=== PATIENT | female | born 1970 | race Caucasian/White ===

== ENCOUNTER → 2016-12-19 | Outpatient (CLI) | payer BC ==
--- OUTSIDE RECORDS SUMMARY | 2017-03-05 13:21 | XMSREPORT | Summary of Care ---
:1970 Author Organization [facility] Address [address] [facility], [place] [place] [phone] Phone Care Team Providers Name Role Phone Ryan Bolanos Unavailable Unavailable Cait Bui Unavailable Unavailable Pilar Victoria Unavailable Unavailable Ryan Bolanos Unavailable Unavailable , Unavailable Unavailable Reason For Referral Gastro Reason for Visit Health Issues Reviewed:AnxietyDepression Functional Status Name Dates Details Functional status health issues are not documented Status: Name Dates Details Cognitive status health issues are not documented Status: Problems Name Dates Details Abdominal pain, chronic, generalized(789.07, R10.84) Status:Active Allergic rhinitis(477.9, J30.9) Status:Active Aneurysm, cerebral(437.3, I67.1) Status:Active Anxiety(300.00, F41.9) Status:Active Asthma(493.90, J45.909) Status:Active Bronchitis(490, J40) Status:Active Mar infection(112.9, B37.9) Status:Active Chronic headaches(784.0, R51) Status:Active Chronic use of opiate drugs therapeutic purposes(V58.69, Z79.891) Status: Active Depression(311, F32.9) Status:Active Elevated BUN(790.6, R79.9) Status:Active Frequent urination(788.41, R35.0) Status:Active Gastroparesis(536.3, K31.84) Status:Active H/O herpes genitalis(V12.09, Z86.19) Status:Active Hypothyroidism(244.9, E03.9) Status:Active Insomnia(780.52, G47.00) Status:Active Left flank pain(789.09, R10.9) Status:Active Migraine(346.90, G43.909) Status:Active Preoperative clearance(V72.84, Z01.818) Status:Active Recurrent nephrolithiasis(592.0, N20.0) Status:Active Recurrent sinusitis(473.9, J32.9) Status:Active Uncontrolled pain(780.96, R52) Status:Active Urine WBC increased(791.7, R82.99) Status:Active UTI symptoms(788.99, R39.9) Status:Active Medications Name Dates Details Advair Diskus 250-50 MCG/DOSE Inhalation Aerosol Powder Breath Activated INHALE 1 PUFF TWO TIMES A DAY Quantity:60 Refills:10 ClairD.O.Ryan [id number] Active ClonazePAM 1 MG Oral Tablet Take 1/2 tab jean-claude;u as needed. Quantity:15 Refills:1 [id number] Active Compro 25 MG Rectal Suppository UNWRAP AND INSERT 1 SUPPOSITORY RECTALLY THREE TIMES A DAY NEEDED FOR NAUSEA AND VOMITING Quantity:36 ClairD.Tarik.Ryan [id number] Active Diclofenac Sodium 50 MG Oral Tablet Delayed Release TAKE 1 TABLET BY MOUTH EVER Y 8 HOURS WITH FOOD NEED ED FOR PAIN Quantity:15 Cait Walsh [id number] Active FLUoxetine HCl - 40 MG Oral Capsule TAKE 1 CAPSULE Daily Quantity:30 Refills:3 Pilar Victoria [id number] Active HYDROmorphone HCl - 4 MG Oral Tablet TAKE 1 TABLET EVERY 6 HOURS NEEDED. Quantity:120 CiciDRyan Schulz Levothyroxine Sodium 100 MCG Oral Tablet TAKE 1 TABLET DAILY DIRECTED. Quantity:90 Refills:3 ClairDRyan Schulz [id number] Active Omeprazole 20 MG Oral Capsule Delayed Release TAKE 1 CAPSULE DAILY. Quantity:30 [id number] Active Ondansetron 8 MG Oral Tablet Disintegrating TAKE 1 TABLET Every 8 hours PRN Nausea and Vomiting Quantity:1 Refills:5 CiciDRyan Schulz [id number] Active 30 Tablet Dispersible Bottle SUMAtriptan Succinate 100 MG Oral Tablet TAKE ONE TABLET BY MOUTH AT ONSET OF MIGRAINE HEADACHE - DECEMBER REPEAT IN 2 HOURS IF NEEDED Quantity:9 Refills:11 Lis.Ryan Ledbetter [id number]-[id number] Active Trimethobenzamide HCl 300 MG Oral Capsule TAKE ONE CAPSULE BY MOUTH 2 TO 3 TIMES DAILY Quantity:90 Refills:3 ClairD.O.Ryan [id number]-[id number] Active Wellbutrin XL 150 MG Oral Tablet Extended Release 24 Hour (BuPROPion HCl ER (XL) ) TAKE 1 TABLET DAILY. Quantity:30 Refills:2 [id number] Active Zolpidem Tartrate 10 MG Oral Tablet TAKE ONE TABLET BY MOUTH AT BEDTIME NEEDED FOR SLEEP Quantity:30 Refills:5 ClairD.O.Ryan [id number]-Slu-6513 Active Zyrtec TABS Active Allergies and Adverse Reactions Name Dates Details chlorproMAZINE(Allergy) Status:Active Doxycycline Hyclate CAPS(Allergy) Status:Active iodine(Allergy) Status:Active Phenergan TABS(Allergy) Status:Active Tylox(Allergy) Status:Active ZyPREXA TABS(Allergy) Status:Active Procedures Procedure Dates Details History of Cholecystectomy History of Corneal LASIK History of Exploratory Laparoscopy History of Gallbladder Surgery History of Intracranial Aneurysm Repair Endovascular With [place] Coil History of Renal Lithotripsy History of Tubal Ligation Procedures not documented Immunization Name Dates Details No Known Immunizations Social History Name Dates Details - Status: Name Dates Details Former smoker Former smoker Vital Signs Date Test Result Details 13:28 Temperature 97.5f Status: Heart Rate 84/min Status: Physical Findings 21 Status:Comments:Respiration Height 69in Status: Weight 154.375lb Status: Body Mass Index Calculated 22.8kg/m2 Status: Body Surface Area Calculated 1.85m2 Status: BP Systolic 94mm[Hg] Status: BP Diastolic 82mm[Hg] Status: 19-Dec-2016 14:03 Physical Findings 96 Status:Comments:O2 Saturation 04-Oct-2014 14:16 Physical Findings 0 Status:Comments:Pain Scale Results Date Description Value Details Results not documented Plan of Care Name Dates Details Planned Observations Planned Goals not documented Planned Encounters 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 I'm also going to check on a dietary consult for a diet that would be good for gastroparesis. I 'll see her back in 3 weeks. Instructions Name Dates Details Instructions not documented Encounters Appointment; Cait Bui WHCNP [id number] Encounter Diagnosis:Problem not documented 13:45 Appointment; Cait Bui WHCNP Encounter Diagnosis:Problem not documented 15:00
== END | disposition home or self-care (01) ==
LOC: MW.CHIM 14:35
PROVIDERS: ATTEND Internal Medicine
DX: Z00.00 Encounter for general adult medical examination without abnormal findings (principal); E03.9 Hypothyroidism, unspecified
CPT/HCPCS: 36415; 80053; 80061; 84443; 85025

== ENCOUNTER 2017-07-27 00:58 | Emergency (ER) | payer BC ==
[2017-07-27] MEDS ORDERED: Ondansetron 4 MG/2 ML SDV IVPUSH ONE (01:16)
[2017-07-27] MEDS ORDERED: Sodium Chloride 0.9% 1,000 ML IV ONE (01:16)
--- NOTE | 2017-07-27 01:17 | EDM.PDOC ---
ED HPI GENERAL MEDICAL PROBLEM - General Chief Complaint: Abdominal Pain Stated Complaint: VOMITING/GASTRIC PROBLEM Time Seen by Provider: 07/27/17 01:17 Source of Information: Reports: Patient - History of Present Illness INITIAL COMMENTS - FREE TEXT/NARRATIVE: HISTORY AND PHYSICAL: History of present illness: [ Patient presents with abdominal pain she rates 10 out of 10, she has a history of ongoing gastroparesis and chronic abdominal pain secondarily. She is been on methadone previously and was switched to Dilaudid and she is on a medication from [place] to increase GI motility. She is cared for through [facility] in [place] and primary care with Dr. Polk for pain control. She has not been seen in the ER for pain control since [address] Almanza's detailed note that time. Her history is essentially unchanged from that time She initially presented with nausea and vomiting she has no fever chills sweats no chest pain shortness breath headache dizziness palpitation no urinary symptoms ] Review of systems: As per history of present illness and below otherwise all systems reviewed and negative. Past medical history: As per history of present illness and as reviewed below otherwise noncontributory. Surgical history: As per history of present illness and as reviewed below otherwise noncontributory. Social history: No reported history of drug or alcohol abuse. Family history: As per history of present illness and as reviewed below otherwise noncontributory. Physical exam: HEENT: Atraumatic, normocephalic, pupils reactive, negative for conjunctival pallor or scleral icterus, mucous membranes moist, throat clear, neck supple, nontender, trachea midline. Lungs: Clear to auscultation, breath sounds equal bilaterally, chest nontender. Heart: S1S2, regular, negative for clicks, rubs, or JVD. Abdomen: Soft, nondistended, diffusely tender no guarding or rebound. Negative for masses or hepatosplenomegaly. Negative for costovertebral tenderness. Pelvis: Stable nontender. Genitourinary: Deferred. Rectal: Deferred. Extremities: Atraumatic, negative for cords or calf pain. Neurovascular unremarkable. Neuro: Awake, alert, oriented. Cranial nerves II through XII unremarkable. Cerebellum unremarkable. Motor and sensory unremarkable throughout. Exam nonfocal. Diagnostics: []Lab as below CT abdomen pelvis no contrast as patient has iodine allergy Therapeutics: []1 L normal saline bolus Zofran 8 mg IV Dilaudid 2 mg IV Dilaudid 2 mg 4 times a day 10 no refill Zofran 8 mg ODT every 8 when necessary #30 no refill Patient refused admission for pain control/observation, intraluminal of currently out of her current medication provided Dilaudid 2 mg by mouth 4 times a day when necessary for pain 10 tablets no refills she has an appointment to follow with Dr. Polk on Friday per patient Impression: []Abdominal pain Nausea vomiting resolved History of gastroparesis followed by [place] Chronic pain-currently controlled Definitive disposition and diagnosis as appropriate pending reevaluation and review of above. Bilateral Upper Abdomen Pain Score (Numeric/FACES): 8 - Related Data Allergies Allergy/AdvReac Type Severity Reaction Status Date / Time acetaminophen [From Tylox] Allergy Cannot Verified 07/27/17 01:03 Remember chlorpromazine Allergy Seizure Verified 07/27/17 01:03 doxycycline Allergy Cannot Verified 07/27/17 01:03 Remember iopamidol [From Isovue-128] Allergy Burning Verified 07/27/17 01:03 morphine Allergy Rash Verified 07/27/17 01:03 olanzapine [From Zyprexa] Allergy Hyperactivi Verified 07/27/17 01:03 ty oxycodone HCl [From Tylox] Allergy Cannot Verified 07/27/17 01:03 Remember promethazine HCl Allergy Hallucinati Verified 07/27/17 01:03 [From Phenergan] ons Home Meds: Home Meds Cetirizine HCl [Zyrtec] 1 tab PO DAILY 12/09/14 [History] Fluticasone/Salmeterol [Advair 250-50] 1 puff INH BID 12/09/14 [History] Omeprazole 1 tab PO DAILY 12/09/14 [History] Zolpidem [Ambien] 1 tab PO BEDTIME 12/09/14 [History] Ascorbic Acid [Vitamin C] 1 tab PO DAILY 08/02/15 [History] Cholecalciferol (Vitamin D3) [Vitamin D3] 5,000 unit PO DAILY 08/02/15 [History] Cyanocobalamin (Vitamin B-12) [Vitamin B-12] 1 tab PO DAILY 08/02/15 [History] Levothyroxine [Synthroid] 100 mcg PO ACBREAKFAST 08/02/15 [History] MV,Ca,Min/FA/Herbal No.157 [Estroven Max Strength Caplet] 400 mcg PO DAILY 08/02 [History] SUMAtriptan 100 mg PO DAILY PRN 08/02/15 [History] Trimethobenzamide [Tigan] 300 mg PO TID PRN 08/02/15 [History] Vitamin A 1 cap PO DAILY 08/02/15 [History] Vitamin E 400 unit PO BID 08/02/15 [History] valACYclovir [Valtrex] 500 mg PO BID 08/02/15 [History] Buprenorphine [Butrans] 1 each TD Q7D #1 patch.tdwk 08/04/15 [Rx] Ondansetron [Zofran ODT] 4 mg PO Q4H PRN #30 tab.dis 08/04/15 [Rx] Fluticasone/Salmeterol [Advair Hfa 230-21 Mcg Inhaler] 1 inh INH TID 09/24/15 [ History] HYDROmorphone [Dilaudid] 4 mg PO ASDIRECTED 09/24/15 [History] Past Medical History HEENT History: Reports: Impaired Vision Cardiovascular History: Reports: None Respiratory History: Reports: Asthma, COPD Gastrointestinal History: Reports: None Other Gastrointestinal History: gastroparesis Genitourinary History: Reports: None DROP TESTER History: Reports: None Musculoskeletal History: Reports: None Neurological History: Reports: Cerebral Aneurysms Psychiatric History: Reports: None Endocrine/Metabolic History: Reports: None Hematologic History: Reports: None Immunologic History: Reports: None Oncologic (Cancer) History: Reports: None Dermatologic History: Reports: None - Infectious Disease History Infectious Disease History: Reports: Chicken Pox - Past Surgical History Head Surgeries/Procedures: Reports: None Cardiovascular Surgical History: Reports: None Respiratory Surgical History: Reports: None GI Surgical History: Reports: Cholecystectomy Female Surgical History: Reports: Tubal Ligation Endocrine Surgical History: Reports: None Musculoskeletal Surgical History: Reports: None Oncologic Surgical History: Reports: None Dermatological Surgical History: Reports: None Social & Family History - Family History Family Medical History: Noncontributory - Tobacco Use Smoking Status *Q: Never Smoker Years of Tobacco use: 15 Second Hand Smoke Exposure: No - Caffeine Use Caffeine Use: Reports: None - Alcohol Use Days Per Week of Alcohol Use: 0 - Recreational Drug Use Recreational Drug Use: No ED ROS GENERAL - Review of Systems Review Of Systems: ROS reveals no pertinent complaints other than HPI. ED EXAM, GENERAL - Physical Exam Exam: See Below Course - Vital Signs Last Recorded V/S: Last Vital Signs Temp 95.5 F 07/27/17 01:05 Pulse 107 H 07/27/17 01:05 Resp 18 07/27/17 01:05 BP 145/79 H 07/27/17 01:05 Pulse Ox 95 07/27/17 01:05 - Orders/Labs/Meds Orders: Active Orders 24 hr Category Date Time Status Abdomen Pelvis wo Cont [CT] Stat Exams 07/27/17 01:49 Taken Labs: Laboratory Tests 07/27/17 07/27/17 07/27/17 Range/Units 01: 01:26 01:59 WBC 13.40 H (4.0-11.0) K/uL RBC 5.21 (4.30-5.90) M/uL Hgb 16.0 (12.0-16.0) g/dL Hct 47.6 H (36.0-46.0) % MCV 91.4 (80.0-98.0) fL MCH 30.7 (27.0-32.0) pg MCHC 33.6 (31.0-37.0) g/dL RDW Std Deviation 46.6 (28.0-62.0) fl RDW Coeff of Erlin 14 (11.0-15.0) % Plt Count 401 H (150-400) K/uL MPV 8.10 (7.40-12.00) fL Neut % (Auto) 85.4 H (48.0-80.0) % Lymph % (Auto) 8.8 L (16.0-40.0) % [place] % (Auto) 4.2 (0.0-15.0) % Eos % (Auto) 1.3 (0.0-7.0) % Baso % (Auto) 0.3 (0.0-1.5) % Neut # (Auto) 11.5 H (1.4-5.7) K/uL Lymph # (Auto) 1.2 (0.6-2.4) K/uL [place] # (Auto) 0.6 (0.0-0.8) K/uL Eos # (Auto) 0.2 (0.0-0.7) K/uL Baso # (Auto) 0.0 (0.0-0.1) K/uL Sodium 141 (136-146) mmol/L Potassium 4.4 (3.5-5.1) mmol/L Chloride 107 (98-110) mmol/L Carbon Dioxide 21 (21-31) mmol/L BUN 18 (6.0-23.0) mg/dL Creatinine 1.2 (0.6-1.5) mg/dL Est Cr Clr Drug Dosing 60.57 mL/min Estimated GFR (MDRD) 48.2 ml/min Glucose 178 H (60-110) mg/dL Calcium 9.9 (8.8-10.8) mg/dL Total Bilirubin 0.4 (0.1-1.5) mg/dL AST 17 (5-40) IU/L ALT 17 (8-54) IU/L Alkaline Phosphatase 93 (40-150) Total Protein 8.1 H (6.0-8.0) g/dL Albumin 4.4 (3.5-5.0) g/dL Globulin 3.7 H (2.0-3.5) g/dL Albumin/Globulin Ratio 1.2 L (1.3-2.8) Urine Color YELLOW Urine Appearance SLT CLOUDY Urine pH 6.0 (5.0-8.0) Ur Specific [employer] >= 1.030 (1.001-1.035) Urine Protein NEGATIVE (NEGATIVE) mg/dL Urine Glucose (UA) NEGATIVE (NEGATIVE) mg/dL Urine Ketones 40 H (NEGATIVE) mg/dL Urine Occult Blood NEGATIVE (NEGATIVE) Urine Nitrite NEGATIVE (NEGATIVE) Urine Bilirubin NEGATIVE (NEGATIVE) Urine Urobilinogen 0.2 (<2.0) EU/dL Ur Leukocyte Esterase SMALL (NEGATIVE) Urine RBC 0-3 (0-2/HPF) Urine WBC 7-10 (0-5/HPF) Ur Epithelial Cells MODERATE (NONE-FEW) Urine Bacteria 1+ H (NEGATIVE) Urine Mucus LIGHT (NONE-MOD) Meds: Medications Discontinued Medications Generic Name Dose Route Start Last Admin Trade Name Freq PRN Reason Stop Dose Admin Hydromorphone HCl 2 mg 07/27/17 01:45 07/27/17 01:55 Dilaudid IVPUSH 07/27/17 01:46 2 mg ONETIME ONE Administration Sodium Chloride 1,000 mls @ 999 mls/hr 07/27/17 01:16 07/27/17 01:27 Normal Saline IV 07/27/17 02:16 999 mls/hr STAT ONE Administration Ondansetron HCl 8 mg 07/27/17 01:16 07/27/17 01:23 Zofran IVPUSH 07/27/17 01:17 8 mg ONETIME ONE Administration Departure - Departure Time of Disposition: 03:33 Disposition: Home, Self-Care 01 Condition: Fair Clinical Impression: Abdominal pain - Discharge Information Referrals: Ryan Bolanos DO [Primary Care Provider] - Forms: ED Department Discharge Additional Instructions: Medication as prescribed Return if symptoms persist or worsen Follow-up with Dr. bolanos Friday as discussed The following information is given to patients seen in the emergency department who are being discharged to home. This information is to outline your options for follow-up care. We provide all patients seen in our emergency department with a follow-up referral. The need for follow-up, as well as the timing and circumstances, are variable depending upon the specifics of your emergency department visit. If you don't have a primary care physician on staff, we will provide you with a referral. We always advise you to contact your personal physician following an emergency department visit to inform them of the circumstance of the visit and for follow-up with them and/or the need for any referrals to a consulting specialist. The emergency department will also refer you to a specialist when appropriate. This referral assures that you have the opportunity for follow-up care with a specialist. All of these measure are taken in an effort to provide you with optimal care, which includes your follow-up. Under all circumstances we always encourage you to contact your private physician who remains a resource for coordinating your care. When calling for follow-up care, please make the office aware that this follow-up is from your recent emergency room visit. If for any reason you are refused follow-up, please contact the [facility] emergency department at and asked to speak to the emergency department charge nurse. - My Orders Last 24 Hours: My Active Orders 07/27/17 01:49 Abdomen Pelvis wo Cont [CT] Stat - Assessment/Plan Last 24 Hours: My Active Orders 07/27/17 01:49 Abdomen Pelvis wo Cont [CT] Stat
[2017-07-27] MEDS ORDERED: HYDROmorphone 1 MG/ML Syringe IVPUSH ONE (01:45)
[2017-07-27 03:51] VITALS: BP 105/67
--- NOTE | 2017-07-27 09:59 | CT ---
EXAM DATE: 07/27/17 PATIENT'S AGE: 47 Patient: ABEL BLUM Facility: [place], [place] Site . Site : 1970 Study: CT Abdomen/Pelvis [id number]/26/2017 2:36:01 AM Ordering Physician: Nate Shirley Final Report: INDICATION: Generalized abdominal pain, vomiting, history of gastroparesis TECHNIQUE: CT abdomen and pelvis without contrast. COMPARISON: July 11, 2016 FINDINGS: Lower chest: Unremarkable. Liver: Unremarkable. Spleen: Unremarkable. Pancreas: Unremarkable. Gallbladder and bile ducts: Status post cholecystectomy. Adrenal glands: Unremarkable. Kidneys: Punctate nonobstructive left renal stone. GI tract: Large amount of stool throughout the colon. Multiple oval densities throughout the colon, presumably pills. Vascular structures: Unremarkable. Lymph nodes: Unremarkable. Miscellaneous: Unremarkable. No free air or significant free fluid. Pelvic Organs: Unremarkable. Bones: Unremarkable for age. IMPRESSION: Large amount of stool throughout the colon. Multiple oval densities throughout the colon presumably represent pills. Correlate with clinical history. No acute intra-abdominal inflammatory process identified. Nonobstructive left nephrolithiasis. Status post cholecystectomy. Please note that all CT scans at this facility use dose modulation, iterative reconstruction, and/or weight-based dosing when appropriate to reduce radiation dose to as low as reasonably achievable. Dictated by Letty Esteban MD @ Jul 27 2017 3:02AM (Electronic Signature) Report Signed by Proxy. [facility]
== END 2017-07-27 03:55 | disposition home or self-care (01) ==
LOC: MW.ED 00:58
DX: R10.11 Right upper quadrant pain (principal); R10.12 Left upper quadrant pain; R11.2 Nausea with vomiting, unspecified; Z88.5 Allergy status to narcotic agent; Z88.1 Allergy status to other antibiotic agents; Z88.8 Allergy status to other drugs, medicaments and biological substances; Z79.899 Other long term (current) drug therapy
CPT/HCPCS: 74176; 80053; 81001; 85025; 96361; 96374; 96375; 99284; J1170; J2405; J7040

== ENCOUNTER 2017-07-27 10:06 | Observation (INO) | payer BC ==
--- NOTE | 2017-07-27 10:19 | EDM.PDOC ---
ED HPI GENERAL MEDICAL PROBLEM - General Chief Complaint: Abdominal Pain Stated Complaint: VOMITING Time Seen by Provider: 07/27/17 10:18 Source of Information: Reports: Patient, Family History Limitations: Reports: No Limitations - History of Present Illness INITIAL COMMENTS - FREE TEXT/NARRATIVE: HISTORY AND PHYSICAL: []47-year-old female presenting with abdominal pain history of gastroparesis History of Present Illness: []Patient was in 3:00 this morning and seen by Dr. Sullivan for same had been offered admission inpatient he declined at that time She presents with recurrent abdominal pain She was seen by [facility] for chronic pain Review of Systems: As per history of present illness and below otherwise all systems reviewed and negative. Past medical history: As per history of present illness and as reviewed below otherwise noncontributory. Surgical history: As per history of present illness and as reviewed below otherwise noncontributory. Social history: No reported history of drug or alcohol abuse. Family history: As per history of present illness and as reviewed below otherwise noncontributory. Physical exam: Alert and oriented female looking quite distressed significant pain noted. Answering questions in full sentences without any shortness of breath HEENT: Atraumatic, normocehpalic, pupils reactive, negative for conjunctival pallor or scleral icterus, mucous membranes moist, throat clear, neck supple, nontender, trachea midline. Lungs: Clear to auscultation, breath sounds equal bilaterally, chest non tender. Heart: S1S2, regular, negative for clicks, rubs, or JVD. Abdomen: Soft, mild distended, tender. Negative for masses or hepatossplenmegaly. Negative for costovertebral tenderness. Pelvis: Stable nontender. Genitourinary: Deferred. Rectal: Deferred Extremities: Atraumatic, negative for cords or calf pain. Neurovascular unremarkable. Neuro: Awake, alert, oriented. Cranial nerves II through XII unremarkable. Cerebellum unremarkable. Motor and sensory unremarkable throughout. Exam nonfocal. Discussed this case briefly with Dr. Zarco who has accepted for Observation on Med - Surg Diagnostics: [] Therapeutics: [IV fluids Dilaudid Zofran ] Impression: [Gastroparesis] Plan: []Refer for observation Definitive disposition and diagnosis as appropriate pending reevaluation and review of above. - Related Data Allergies Allergy/AdvReac Type Severity Reaction Status Date / Time acetaminophen [From Tylox] Allergy Cannot Verified 07/27/17 10:14 Remember chlorpromazine Allergy Seizure Verified 07/27/17 10:14 doxycycline Allergy Cannot Verified 07/27/17 10:14 Remember iopamidol [From Isovue-128] Allergy Burning Verified 07/27/17 10:14 morphine Allergy Rash Verified 07/27/17 10:14 olanzapine [From Zyprexa] Allergy Hyperactivi Verified 07/27/17 10:14 ty oxycodone HCl [From Tylox] Allergy Cannot Verified 07/27/17 10:14 Remember promethazine HCl Allergy Hallucinati Verified 07/27/17 10:14 [From Phenergan] ons Home Meds: Home Meds Cetirizine HCl [Zyrtec] 1 tab PO DAILY 12/09/14 [History] Fluticasone/Salmeterol [Advair 250-50] 1 puff INH BID 12/09/14 [History] Omeprazole 1 tab PO DAILY 12/09/14 [History] Zolpidem [Ambien] 1 tab PO BEDTIME 12/09/14 [History] Ascorbic Acid [Vitamin C] 1 tab PO DAILY 08/02/15 [History] Cholecalciferol (Vitamin D3) [Vitamin D3] 5,000 unit PO DAILY 08/02/15 [History] Cyanocobalamin (Vitamin B-12) [Vitamin B-12] 1 tab PO DAILY 08/02/15 [History] Levothyroxine [Synthroid] 100 mcg PO ACBREAKFAST 08/02/15 [History] MV,Ca,Min/FA/Herbal No.157 [Estroven Max Strength Caplet] 400 mcg PO DAILY 08/02 [History] SUMAtriptan 100 mg PO DAILY PRN 08/02/15 [History] Trimethobenzamide [Tigan] 300 mg PO TID PRN 08/02/15 [History] Vitamin A 1 cap PO DAILY 08/02/15 [History] Vitamin E 400 unit PO BID 08/02/15 [History] valACYclovir [Valtrex] 500 mg PO BID 08/02/15 [History] Buprenorphine [Butrans] 1 each TD Q7D #1 patch.tdwk 08/04/15 [Rx] Ondansetron [Zofran ODT] 4 mg PO Q4H PRN #30 tab.dis 08/04/15 [Rx] Fluticasone/Salmeterol [Advair Hfa 230-21 Mcg Inhaler] 1 inh INH TID 09/24/15 [ History] HYDROmorphone [Dilaudid] 4 mg PO ASDIRECTED 09/24/15 [History] Past Medical History HEENT History: Reports: Impaired Vision Cardiovascular History: Reports: None Respiratory History: Reports: Asthma, COPD Gastrointestinal History: Reports: None Other Gastrointestinal History: gastroparesis Genitourinary History: Reports: None HUSBANDRY PERSON History: Reports: None Musculoskeletal History: Reports: None Neurological History: Reports: Cerebral Aneurysms Psychiatric History: Reports: None Endocrine/Metabolic History: Reports: None Hematologic History: Reports: None Immunologic History: Reports: None Oncologic (Cancer) History: Reports: None Dermatologic History: Reports: None - Infectious Disease History Infectious Disease History: Reports: Chicken Pox - Past Surgical History Head Surgeries/Procedures: Reports: None Cardiovascular Surgical History: Reports: None Respiratory Surgical History: Reports: None GI Surgical History: Reports: Cholecystectomy Female Surgical History: Reports: Tubal Ligation Endocrine Surgical History: Reports: None Musculoskeletal Surgical History: Reports: None Oncologic Surgical History: Reports: None Dermatological Surgical History: Reports: None Social & Family History - Family History Family Medical History: Noncontributory - Tobacco Use Smoking Status *Q: Never Smoker Years of Tobacco use: 15 Second Hand Smoke Exposure: No - Caffeine Use Caffeine Use: Reports: None - Alcohol Use Days Per Week of Alcohol Use: 0 - Recreational Drug Use Recreational Drug Use: No ED ROS GENERAL - Review of Systems Review Of Systems: ROS reveals no pertinent complaints other than HPI. ED EXAM, GI/ABD - Physical Exam Exam: See Below Course - Orders/Labs/Meds Orders: Active Orders 24 hr Category Date Time Status Patient Status [ADT] Stat ADT 07/27/17 10:42 Ordered COMPREHENSIVE METABOLIC PN,CMP [CHEM] Stat Lab 07/27/17 10:22 Ordered LACTIC ACID,WHOLE BLOOD [BG] Stat Lab 07/27/17 10:22 Ordered Sodium Chloride 0.9% [Normal Saline] 1,000 ml Med 07/27/17 10:22 Active IV STAT Sodium Chloride 0.9% [Saline Flush] Med 07/27/17 10:22 Active 10 ml FLUSH ASDIRECTED PRN Sodium Chloride 0.9% [Saline Flush] Med 07/27/17 10:22 Active 2.5 ml FLUSH ASDIRECTED PRN Saline Lock Insert [OM.PC] Stat Oth 07/27/17 10:22 Ordered Medication Orders Sodium Chloride (Normal Saline) 1,000 mls @ 999 mls/hr IV STAT ONE Stop: 07/27/17 11:22 Last Admin: 07/27/17 10:41 Dose: 999 mls/hr Sodium Chloride (Saline Flush) 10 ml FLUSH ASDIRECTED PRN PRN Reason: Keep Vein Open Sodium Chloride (Saline Flush) 2.5 ml FLUSH ASDIRECTED PRN PRN Reason: Keep Vein Open Meds: Medications Generic Name Dose Route Start Last Admin Trade Name Freq PRN Reason Stop Dose Admin Sodium Chloride 1,000 mls @ 999 mls/hr 07/27/17 10:22 07/27/17 10:41 Normal Saline IV 07/27/17 11:22 999 mls/hr STAT ONE Administration Sodium Chloride 10 ml 07/27/17 10:22 Saline Flush FLUSH ASDIRECTED PRN Keep Vein Open Sodium Chloride 2.5 ml 07/27/17 10:22 Saline Flush FLUSH ASDIRECTED PRN Keep Vein Open Discontinued Medications Generic Name Dose Route Start Last Admin Trade Name Freq PRN Reason Stop Dose Admin Hydromorphone HCl 2 mg 07/27/17 10:22 07/27/17 10:41 Dilaudid IVPUSH 07/27/17 10:23 2 mg ONETIME ONE Administration Ondansetron HCl 4 mg 07/27/17 10:22 07/27/17 10:41 Zofran Odt PO 07/27/17 10:23 4 mg ONETIME ONE Administration Departure - Departure Time of Disposition: 10:44 Disposition: Refer to Observation Condition: Good Clinical Impression: Gastroparesis, Abdominal pain - Discharge Information Forms: ED Department Discharge - My Orders Last 24 Hours: My Active Orders 07/27/17 10:22 COMPREHENSIVE METABOLIC PN,CMP [CHEM] Stat LACTIC ACID,WHOLE BLOOD [BG] Stat Sodium Chloride 0.9% [Normal Saline] 1,000 ml IV STAT Sodium Chloride 0.9% [Saline Flush] 10 ml FLUSH ASDIRECTED PRN Sodium Chloride 0.9% [Saline Flush] 2.5 ml FLUSH ASDIRECTED PRN Saline Lock Insert [OM.PC] Stat 07/27/17 10:42 Patient Status [ADT] Stat - Assessment/Plan Last 24 Hours: My Active Orders 07/27/17 10:22 COMPREHENSIVE METABOLIC PN,CMP [CHEM] Stat LACTIC ACID,WHOLE BLOOD [BG] Stat Sodium Chloride 0.9% [Normal Saline] 1,000 ml IV STAT Sodium Chloride 0.9% [Saline Flush] 10 ml FLUSH ASDIRECTED PRN Sodium Chloride 0.9% [Saline Flush] 2.5 ml FLUSH ASDIRECTED PRN Saline Lock Insert [OM.PC] Stat 07/27/17 10:42 Patient Status [ADT] Stat
[2017-07-27] MEDS ORDERED: Sodium Chloride 0.9% 10 ML Syringe FLUSH PRN ×2 (10:22→13:25)
[2017-07-27] MEDS ORDERED: Ondansetron 4 MG Tab.DIS PO ONE (10:22)
[2017-07-27] MEDS ORDERED: HYDROmorphone 2 MG/ML Syringe IVPUSH ONE (10:22)
[2017-07-27] MEDS ORDERED: Sodium Chloride 0.9% 1,000 ML IV ONE (10:22)
[2017-07-27] MEDS ORDERED: Sodium Chloride 0.9% 2.5 ML Syringe FLUSH PRN ×2 (10:22→13:25)
[2017-07-27] MEDS ORDERED: diphenhydrAMINE 50 MG/ML SDV IVPUSH ONE (10:58)
[2017-07-27 11:15] LABS: CHLORIDE,CL 108 mmol/L (98-110); SODIUM,NA 139 mmol/L (136-146)
--- NOTE | 2017-07-27 12:04 | PCM.HP ---
H&P History of Present Illness - General Date of Service: 07/27/17 Source of Information: Patient History Limitations: Reports: No Limitations - History of Present Illness Initial Comments - Free Text/Narative: Patient 47 y old female with PMx of gastroparesis diagnosed few years ago, presented to hospital today twice due to severe abdominal pain associated with intractable nausea and vomiting. As per patient she run out of her pain medication and when she gets severe abdominal pain she starts vomiting . Her vomiting is being triggered by pain. She was seen in ER and received iv fluids and Dilaudid 2 mg iv and was discharged home , but as soon as her medication wore off she start vomiting again. Onset of Symptoms: Reports: Today, Sudden Duration of Symptoms: Reports: Hour(s): Location: Reports: Abdomen abdomen Pain Score (Numeric/FACES): 4 - Related Data Allergies/Adverse Reactions: Allergies Allergy/AdvReac Type Severity Reaction Status Date / Time chlorpromazine Allergy Seizure Verified 07/27/17 10:14 doxycycline Allergy Cannot Verified 07/27/17 10:14 Remember iopamidol [From Isovue-128] Allergy Burning Verified 07/27/17 10:14 olanzapine [From Zyprexa] Allergy Hyperactivi Verified 07/27/17 10:14 ty promethazine HCl Allergy Hallucinati Verified 07/27/17 10:14 [From Phenergan] ons Home Medications: Home Meds Cetirizine HCl [Zyrtec] 1 tab PO DAILY 12/09/14 [History] Fluticasone/Salmeterol [Advair 250-50] 1 puff INH BID 12/09/14 [History] Omeprazole 1 tab PO DAILY 12/09/14 [History] Zolpidem [Ambien] 1 tab PO BEDTIME 12/09/14 [History] Cholecalciferol (Vitamin D3) [Vitamin D3] 5,000 unit PO DAILY 08/02/15 [History] Cyanocobalamin (Vitamin B-12) [Vitamin B-12] 1 tab PO DAILY 08/02/15 [History] Levothyroxine [Synthroid] 100 mcg PO ACBREAKFAST 08/02/15 [History] SUMAtriptan 100 mg PO DAILY PRN 08/02/15 [History] Trimethobenzamide [Tigan] 300 mg PO TID PRN 08/02/15 [History] Vitamin A 1 cap PO DAILY 08/02/15 [History] Vitamin E 400 unit PO DAILY 08/02/15 [History] valACYclovir [Valtrex] 500 mg PO BID PRN MDD Herpes 08/02/15 [History] Ondansetron [Zofran ODT] 4 mg PO Q4H PRN #30 tab.dis 08/04/15 [Rx] HYDROmorphone [Dilaudid] 4 mg PO ASDIRECTED 09/24/15 [History] Past Medical History - Past Health History Medical/Surgical History: Denies Medical/Surgical History HEENT History: Reports: Impaired Vision Cardiovascular History: Reports: None Respiratory History: Reports: Asthma, COPD Gastrointestinal History: Reports: None Other Gastrointestinal History: gastroparesis Genitourinary History: Reports: None [employer] History: Reports: None Musculoskeletal History: Reports: None Neurological History: Reports: Cerebral Aneurysms Psychiatric History: Reports: None Endocrine/Metabolic History: Reports: None Hematologic History: Reports: None Immunologic History: Reports: None Oncologic (Cancer) History: Reports: None Dermatologic History: Reports: None - Infectious Disease History Infectious Disease History: Reports: Chicken Pox - Past Surgical History Head Surgeries/Procedures: Reports: None Cardiovascular Surgical History: Reports: None Respiratory Surgical History: Reports: None GI Surgical History: Reports: Cholecystectomy Female Surgical History: Reports: Tubal Ligation Endocrine Surgical History: Reports: None Musculoskeletal Surgical History: Reports: None Oncologic Surgical History: Reports: None Dermatological Surgical History: Reports: None Social & Family History - Family History Family Medical History: Noncontributory - Tobacco Use Smoking Status *Q: Never Smoker Years of Tobacco use: 15 Second Hand Smoke Exposure: No - Caffeine Use Caffeine Use: Reports: None - Alcohol Use Days Per Week of Alcohol Use: 0 - Recreational Drug Use Recreational Drug Use: No H&P Review of Systems - Review of Systems: Review Of Systems: See Below General: Reports: No Symptoms HEENT: Reports: No Symptoms Pulmonary: Reports: No Symptoms Cardiovascular: Reports: No Symptoms Gastrointestinal: Reports: Abdominal Pain, Nausea, Vomiting Genitourinary: Reports: No Symptoms Musculoskeletal: Reports: No Symptoms Skin: Reports: No Symptoms Psychiatric: Reports: No Symptoms Neurological: Reports: No Symptoms Hematologic/Lymphatic: Reports: No Symptoms Immunologic: Reports: No Symptoms Exam - Exam Exam: See Below - Vital Signs Vital Signs: Last Vital Signs Temp 97.5 F 07/27/17 11:12 Pulse 97 07/27/17 11:12 Resp 16 07/27/17 11:12 BP 115/78 07/27/17 11:12 Pulse Ox 94 L 07/27/17 11:12 Weight: 154 lb 5.177 oz - Exam Quality Assessment: No: Supplemental Oxygen General: Alert, Oriented, Cooperative, Moderate Distress HEENT: Conjunctiva Clear, EACs Clear, EOMI, Hearing Intact Neck: Supple, Trachea Midline Lungs: Clear to Auscultation, Normal Respiratory Effort Cardiovascular: Regular Rate, Regular Rhythm, Normal S1, Normal S2 GI/Abdominal Exam: Normal Bowel Sounds, Soft, Non-Tender, No Organomegaly, No Distention, No Abnormal Bruit Back Exam: Normal Inspection Extremities: Normal Inspection Skin: Warm, Dry, Intact Neurological: Cranial Nerves Intact Neuro Extensive - Mental Status: Alert, Oriented x3 Neuro Extensive - Motor, Sensory, Reflexes: CN II-XII Intact Psychiatric: Alert, Normal Affect - Patient Data Result Diagrams: 07/27/17 10:38 *Q Meaningful Use (ADM) - VTE *Q VTE Criteria *Q: - Stroke *Q Stroke Criteria *Q: - AMI *Q AMI Criteria *Q: - Problem List (1) Brain aneurysm SNOMED Code(s): 379902067 ICD Code: I67.1 - CEREBRAL ANEURYSM, NONRUPTURED Status: Acute Current Visit: Yes Problem List Initiated/Reviewed/Updated: Yes Orders Last 24hrs: Medication Orders Sodium Chloride (Saline Flush) 10 ml FLUSH ASDIRECTED PRN PRN Reason: Keep Vein Open Sodium Chloride (Saline Flush) 2.5 ml FLUSH ASDIRECTED PRN PRN Reason: Keep Vein Open Assessment/Plan Comment:: A/p Gastroparesis: will admit patient to med surge, iv fluids, antinausea medication zofran iv 4 mg q 4 h prn , dilaudid 2 mg iv q 4 h . Patient says she cant tolerate reglan , erythromycin DVt prof - heparin sq anxiety - zalepton 10 mg po q hs
[2017-07-27] MEDS ORDERED: Dextrose 5%-0.45% NaCl 1,000 ML IV SCH (13:30)
[2017-07-27] MEDS ORDERED: Metoclopramide 10 MG/2 ML SDV IVPUSH PRN (13:50)
[2017-07-27] MEDS: Sodium Chloride 0.45% 1,000 ML IV SCH (14:48)
[2017-07-27] MEDS: HYDROmorphone 2 MG/ML Syringe IVPUSH PRN ×2 (14:48→21:21)
[2017-07-27] MEDS: Ondansetron 4 MG/2 ML SDV IVPUSH PRN ×2 (14:49→21:29)
[2017-07-27] MEDS: diphenhydrAMINE 50 MG/ML SDV IVPUSH PRN ×2 (16:23→21:57)
[2017-07-27] MEDS: Acetaminophen 500 MG Tab PO PRN (17:34)
[2017-07-27] MEDS: Fluticasone/Salmeterol 250-50 MCG Inhalation Powder 14/Diskus INH SCH (21:29)
[2017-07-28] MEDS: Sodium Chloride 0.45% 1,000 ML IV SCH ×2 (00:21→10:21)
[2017-07-28] MEDS: Acetaminophen 500 MG Tab PO PRN (01:31)
[2017-07-28] MEDS: HYDROmorphone 2 MG/ML Syringe IVPUSH PRN ×3 (03:27→11:49)
[2017-07-28] MEDS: diphenhydrAMINE 50 MG/ML SDV IVPUSH PRN (03:33)
[2017-07-28] MEDS: Ondansetron 4 MG/2 ML SDV IVPUSH PRN ×3 (03:33→11:49)
[2017-07-28 06:26] LABS: CHLORIDE,CL 109 mmol/L (98-110); SODIUM,NA 137 mmol/L (136-146)
[2017-07-28] MEDS ORDERED: Enoxaparin 40 MG/0.4 ML Syringe SUBCUT SCH (09:00)
[2017-07-28] MEDS ORDERED: Ondansetron 4 MG/2 ML SDV IVPUSH ONE (09:20)
[2017-07-28] MEDS: SUMAtriptan 50 MG Tab PO PRN ×2 (09:42→11:43)
[2017-07-28 09:43] VITALS: BP 109/73
[2017-07-28] MEDS: Fluticasone/Salmeterol 250-50 MCG Inhalation Powder 14/Diskus INH SCH (10:26)
[2017-07-28] MEDS ORDERED: Pantoprazole 40 MG Vial IVPUSH SCH (10:30)
[2017-07-28] MEDS ORDERED: ClonazePAM 0.5 MG Tab PO PRN (11:13)
[2017-07-28] MEDS ORDERED: Albuterol 8 GM Inhaler INH PRN (11:13)
[2017-07-28] MEDS ORDERED: TRIMETHOBENZAMIDE 300 MG PO PRN (11:13)
[2017-07-28] MEDS ORDERED: buPROPion 150 MG Tab.ER PO SCH (11:15)
[2017-07-28] MEDS ORDERED: Non-Formulary Medication 1 Each (Bupropion Hcl [Wellbutrin Xl] 300 MG) PO SCH (11:15)
[2017-07-28] MEDS ORDERED: Non-Formulary Medication 1 Each PO SCH (11:30)
--- NOTE | 2017-07-28 13:33 | PCM.DCSUM1 ---
Discharge Summary - Hospital Course Brief History: Patient 47 year old female with pmh of gastroparesis and depression presented to hospital twice in one day due to severe abdominal pain associated with intractable nausea and vomiting. As per patient she ran out of her pain medication and when she gets severe abdominal pain she starts vomiting . Her vomiting is being triggered by pain. She was seen in ER and received iv fluids and Dilaudid 2 mg iv and was discharged home , but as soon as her medication wore off she start vomiting again. - Discharge Data Discharge Date: 07/28/17 Discharge Disposition: Home, Self-Care 01 Condition: Good - Patient Instructions Diet: GI Soft/Low Residue/Low Fiber Activity: As Tolerated Notify Provider of: Fever, Increased Pain, Swelling and Redness, Drainage, Nausea and/or Vomiting - Discharge Plan Prescriptions/Med Rec: HYDROmorphone [Dilaudid] 4 mg PO Q6H PRN #10 tablet PRN Reason: Pain Home Medications: Home Meds Cetirizine HCl [Zyrtec] 10 mg PO DAILY 12/09/14 [History] Fluticasone/Salmeterol [Advair 250-50] 1 puff INH BID 12/09/14 [History] Omeprazole 1 tab PO DAILY 12/09/14 [History] Zolpidem [Ambien] 10 mg PO BEDTIME 12/09/14 [History] Cholecalciferol (Vitamin D3) [Vitamin D3] 5,000 unit PO DAILY 08/02/15 [History] Cyanocobalamin (Vitamin B-12) [Vitamin B-12] 1,000 mcg PO DAILY 08/02/15 [ History] Levothyroxine [Synthroid] 100 mcg PO ACBREAKFAST 08/02/15 [History] SUMAtriptan 100 mg PO .EVERY 2 HOURS PRN MDD 200 MG 08/02/15 [History] Trimethobenzamide [Tigan] 300 mg PO TID PRN 08/02/15 [History] Vitamin A 8,000 unit PO DAILY 08/02/15 [History] Vitamin E 400 unit PO DAILY 08/02/15 [History] valACYclovir [Valtrex] 500 mg PO BID PRN MDD Herpes 08/02/15 [History] Albuterol [Ventolin HFA] 2 inh IH Q6H PRN 07/28/17 [History] ClonazePAM [KlonoPIN] 0.5 mg PO BEDTIME PRN 07/28/17 [History] FLUoxetine HCl [Fluoxetine HCl] 40 mg PO DAILY 07/28/17 [History] HYDROmorphone [Dilaudid] 4 mg PO Q6H PRN #10 tablet 07/28/17 [Rx] Non-Formulary Medication [NF Drug] 10 mg PO QIDACANDBED 07/28/17 [History] Ondansetron [Zofran ODT] 8 mg SL Q8H PRN 07/28/17 [History] Polyethylene Glycol 3350 [MiraLAX] 17 gm PO DAILY PRN 07/28/17 [History] Prochlorperazine [Compro] 25 mg RC TID 07/28/17 [History] buPROPion HCl [Wellbutrin Xl] 150 mg PO DAILY 07/28/17 [History] buPROPion HCl [Wellbutrin Xl] 300 mg PO DAILY 07/28/17 [History] Patient Handouts: Abdominal Pain, Adult, Hydromorphone tablets Referrals: Ryan Bolanos DO [Physician] - 07/29/17 1:00 pm - Discharge Summary/Plan Comment DC Time >30 min.: No Discharge Summary/Plan Comment: Discharge Diagnoses: Abdominal pain with nausea and vomiting Gastroparesis Depression Nithya was admitted and treated with pain medication and anti-emetics. Today she was able to tolerate small amount of food and was feeling better. She was eager to be discharged home. at bedside and agrees she is near her normal. They will be given Dilaudid 4 mg take 1/2 tab by mouth every 4-6 hours as needed for pain #10 tabs no refills. She has follow up with PCP tomorrow to have refill of normal amount. She has all other medications. She and her report her prescription for pain medications can last for a long period of time and then she needs to use them suddenly for a exacerbation of gastroparesis and then she uses then quickly and this is what happened this time. Also, her GI dr had decreased her Domperidone due to it possibility causing worsening depression, and since it was decreased abdominal pain has started back more. She reports she will be discussing with them increasing it back to four times a day not BID. She is to return to ED or clinic if concerns should arise. Dilaudid prescription given in ED was handed to me and dannyedded, this was NOT filled due to readmission and myself writing a prescription to get her to her appointment tomorrow afternoon. - General Info Date of Service: 07/28/17 Admission Dx/Problem (Free Text: abdominal pain, nausea and vomiting Subjective Update: Doing better this afternoon, able to keep some grapes and crackers down. Requesting discharge home. at bedside and is agreeable to this. Functional Status: Reports: Pain Controlled, Tolerating Diet - Review of Systems HEENT: Reports: Headaches (better after sumatriptan.) Pulmonary: Reports: No Symptoms. Denies: Shortness of Breath, Cough, Sputum Cardiovascular: Reports: No Symptoms. Denies: Chest Pain, Dyspnea on Exertion, Edema Gastrointestinal: Reports: Abdominal Pain (improved since this am, continues to request discharge.). Denies: Nausea, Vomiting Musculoskeletal: Reports: No Symptoms Neurological: Reports: No Symptoms. Denies: Confusion Psychiatric: Reports: No Symptoms. Denies: Confusion - Patient Data Vitals - Most Recent: Last Vital Signs Temp 96.8 F 07/28/17 08:00 Pulse 89 07/28/17 08:00 Resp 16 07/28/17 08:00 BP 109/73 07/28/17 08:00 Pulse Ox 95 07/28/17 08:00 Weight - Most Recent: 70 kg I&O - Last 24 hours: Intake & Output 07/27/17 07/28/17 07/28/17 22:59 06:59 14:59 Intake Total 256 990 Output Total 100 900 Balance 156 90 Lab Results - Last 24 hrs: Laboratory Results - last 24 hr 07/28/17 07/28/17 Range/Units 05:23 05:23 WBC 5.26 (4.0-11.0) K/uL RBC 4.12 L (4.30-5.90) M/uL Hgb 12.7 (12.0-16.0) g/dL Hct 38.9 (36.0-46.0) % MCV 94.4 (80.0-98.0) fL MCH 30.8 (27.0-32.0) pg MCHC 32.6 (31.0-37.0) g/dL RDW Std Deviation 48.9 (28.0-62.0) fl RDW Coeff of Erlin 14 (11.0-15.0) % Plt Count 266 (150-400) K/uL MPV 8.30 (7.40-12.00) fL Nucleated RBC % 0.0 /100WBC Nucleated RBCs # 0 K/uL Sodium 137 (136-146) mmol/L Potassium 3.8 (3.5-5.1) mmol/L Chloride 109 (98-110) mmol/L Carbon Dioxide 23 (21-31) mmol/L BUN 10 (6.0-23.0) mg/dL Creatinine 0.8 (0.6-1.5) mg/dL Est Cr Clr Drug Dosing 90.85 mL/min Estimated GFR (MDRD) > 60.0 ml/min Glucose 80 (60-110) mg/dL Calcium 8.5 L (8.8-10.8) mg/dL Total Bilirubin 0.5 (0.1-1.5) mg/dL AST 17 (5-40) IU/L ALT 14 (8-54) IU/L Alkaline Phosphatase 68 (40-150) Total Protein 6.0 (6.0-8.0) g/dL Albumin 3.4 L (3.5-5.0) g/dL Globulin 2.6 (2.0-3.5) g/dL Albumin/Globulin Ratio 1.3 (1.3-2.8) Med Orders - Current: Current Medications Acetaminophen (Tylenol Extra Strength) 500 mg PO Q6H PRN PRN Reason: Headache Last Admin: 07/28/17 01:31 Dose: 500 mg Albuterol (Ventolin Hfa) 0 gm INH Q6H PRN PRN Reason: Shortness of Breath Bupropion HCl (Wellbutrin Xl) 450 mg PO DAILY [facility] Last Admin: 07/28/17 11:43 Dose: 450 mg Clonazepam (Klonopin) 0.5 mg PO BEDTIME PRN PRN Reason: Sleep Diphenhydramine HCl (Benadryl) 25 mg IVPUSH Q6H PRN PRN Reason: pruritus Last Admin: 07/28/17 03:33 Dose: 25 mg Enoxaparin Sodium (Lovenox) 40 mg SUBCUT DAILY [facility] Last Admin: 07/28/17 08:41 Dose: 40 mg Fluoxetine HCl (Prozac) 40 mg PO DAILY [facility] Hydromorphone HCl (Dilaudid) 2 mg IVPUSH Q4H PRN PRN Reason: Pain Last Admin: 07/28/17 11:49 Dose: 2 mg Sodium Chloride (Sodium Chloride 0.45%) 1,000 mls @ 100 mls/hr IV ASDIRECTED [facility] Last Admin: 07/28/17 10:21 Dose: 100 mls/hr Levothyroxine Sodium (Synthroid) 100 mcg PO ACBREAKFAST [facility] Ondansetron HCl (Zofran) 4 mg IVPUSH Q4H PRN PRN Reason: Nausea/Vomiting Last Admin: 07/28/17 11:49 Dose: 4 mg Pantoprazole Sodium (Protonix Iv) 40 mg IVPUSH DAILY [facility] Last Admin: 07/28/17 10:28 Dose: 40 mg Domperidone 10 Mg 1 each PO QIDACANDBED [facility] Last Admin: 07/28/17 11:23 Dose: 1 each Trimethobenzamide (300 Mg) 1 each PO TID PRN PRN Reason: Nausea/Vomiting Fluticasone/Salmeterol (Advair Diskus 250-50) 0 puff INH BID [facility] Last Admin: 07/28/17 10:26 Dose: 1 puff Sodium Chloride (Saline Flush) 10 ml FLUSH ASDIRECTED PRN PRN Reason: Keep Vein Open Sodium Chloride (Saline Flush) 2.5 ml FLUSH ASDIRECTED PRN PRN Reason: Keep Vein Open Sumatriptan Succinate (Imitrex) 100 mg PO DAILY PRN PRN Reason: migraine Last Admin: 07/28/17 11:43 Dose: 100 mg Zaleplon (Sonata) 10 mg PO BEDTIME [facility] Last Admin: 07/27/17 21:58 Dose: 10 mg Discontinued Medications Diphenhydramine HCl (Benadryl) 25 mg IVPUSH Q6H ONE Stop: 07/27/17 10:59 Last Admin: 07/27/17 11:11 Dose: 25 mg Hydromorphone HCl (Dilaudid) 2 mg IVPUSH ONETIME ONE Stop: 07/27/17 10:23 Last Admin: 07/27/17 10:41 Dose: 2 mg Sodium Chloride (Normal Saline) 1,000 mls @ 999 mls/hr IV STAT ONE Stop: 07/27/17 11:22 Last Admin: 07/27/17 10:41 Dose: 999 mls/hr Metoclopramide HCl (Reglan) 10 mg IVPUSH Q6H PRN PRN Reason: nausea and vomiting Ondansetron HCl (Zofran Odt) 4 mg PO ONETIME ONE Stop: 07/27/17 10:23 Last Admin: 07/27/17 10:41 Dose: 4 mg Ondansetron HCl (Zofran) 4 mg IVPUSH ONETIME ONE Stop: 07/28/17 09:21 Last Admin: 07/28/17 09:33 Dose: 4 mg Zaleplon (Sonata) Confirm Administered Dose 10 mg .ROUTE .STK-MED ONE Stop: 07/27/17 21:47 Last Admin: 07/27/17 22:03 Dose: Not Given - Exam General: Reports: Alert, Oriented, Cooperative Lungs: Reports: Clear to Auscultation, Normal Respiratory Effort Cardiovascular: Reports: Regular Rate, Regular Rhythm GI/Abdominal Exam: Normal Bowel Sounds, Soft, No Organomegaly, No Distention, No Abnormal Bruit, No Mass, Pelvis Stable, Tender (LUQ) Extremities: Normal Inspection, Normal Range of Motion, Non-Tender, No Pedal Edema, Normal Capillary Refill *Q Meaningful Use (DIS) - VTE *Q VTE Criteria *Q: - Stroke *Q Stroke Criteria *Q: - AMI *Q AMI Criteria *Q:
[2017-07-29] MEDS ORDERED: Levothyroxine 100 MCG Tab PO SCH (07:30)
[2017-07-29] MEDS ORDERED: FLUoxetine 20 MG Cap PO SCH (09:00)
== END 2017-07-28 15:00 | disposition home or self-care (01) ==
LOC: MW.ED 10:06 → MW.MS 11:08
PROVIDERS: ADMIT Internal Medicine; ATTEND Internal Medicine
DX: K31.84 Gastroparesis (principal); R10.812 Left upper quadrant abdominal tenderness; J45.909 Unspecified asthma, uncomplicated; J44.9 Chronic obstructive pulmonary disease, unspecified; F32.9 Major depressive disorder, single episode, unspecified; Z86.79 Personal history of other diseases of the circulatory system; Z88.1 Allergy status to other antibiotic agents; Z88.6 Allergy status to analgesic agent; Z88.5 Allergy status to narcotic agent; Z88.8 Allergy status to other drugs, medicaments and biological substances; Z91.041 Radiographic dye allergy status; Z79.51 Long term (current) use of inhaled steroids; Z79.891 Long term (current) use of opiate analgesic; Z79.899 Other long term (current) drug therapy; Z98.51 Tubal ligation status; Z90.49 Acquired absence of other specified parts of digestive tract; R10.11 Right upper quadrant pain; R10.12 Left upper quadrant pain; R11.2 Nausea with vomiting, unspecified
CPT/HCPCS: 36415; 80053; 83605; 85027; 96361; 96372; 96374; 96375; 96376; 99285; A9270; C9113; G0378; J1170; J1200; J1650; J2405; J7030; J7040; 74176; 74176-26; 81001; 85025; 99283; 99284-25

== ENCOUNTER 2020-10-12 21:10 | Emergency (ER) | payer BC ==
[2020-10-12] MEDS ORDERED: Sodium Chloride 0.9% 10 ML Syringe FLUSH PRN (21:31)
[2020-10-12] MEDS ORDERED: Sodium Chloride 0.9% 2.5 ML Syringe FLUSH PRN (21:31)
[2020-10-12] MEDS ORDERED: Lactated Ringers 1,000 ML IV ONE ×2 (21:31→23:04)
[2020-10-12] MEDS ORDERED: HYDROmorphone 1 MG/ML Syringe IVPUSH ONE ×2 (21:32→22:16)
[2020-10-12] MEDS ORDERED: Ondansetron 4 MG/2 ML SDV IVPUSH ONE (21:34)
--- NOTE | 2020-10-12 21:40 | EDM.PDOC ---
ED HPI GENERAL MEDICAL PROBLEM - General Chief Complaint: Gastrointestinal Problem Stated Complaint: GASTROPARESIS, VOMITTING Time Seen by Provider: 10/12/20 21:16 - History of Present Illness INITIAL COMMENTS - FREE TEXT/NARRATIVE: 50-year-old female with history of gastroparesis on chronic hydromorphone 2 to 4 mg daily who is presenting with severe abdominal pain and nonbloody nonbilious emesis. Symptoms started this morning. notes that she ate a tuna salad sandwich from [employer] late at night last night and wonders if that may have set her off. Is associated with nonbloody diarrhea no fevers no chills no chest p ain no shortness of breath. No alleviating factors no radiation or other associated symptoms. abdominal Pain Score (Numeric/FACES): 10 - Related Data Allergies Allergy/AdvReac Type Severity Reaction Status Date / Time chlorpromazine Allergy Seizure Verified 07/27/17 10:14 doxycycline Allergy Cannot Verified 07/27/17 10:14 Remember iopamidol [From Isovue-128] Allergy Burning Verified 07/27/17 10:14 olanzapine [From Zyprexa] Allergy Hyperactivi Verified 07/27/17 10:14 ty promethazine HCl Allergy Hallucinati Verified 07/27/17 10:14 [From Phenergan] ons Home Meds: Home Meds Cetirizine HCl [Zyrtec] 10 mg PO DAILY 12/09/14 [History] Fluticasone/Salmeterol [Advair 250-50] 1 puff INH BID 12/09/14 [History] Omeprazole 1 tab PO DAILY 12/09/14 [History] Zolpidem [Ambien] 10 mg PO BEDTIME 12/09/14 [History] Cholecalciferol (Vitamin D3) [Vitamin D3] 5,000 unit PO DAILY 08/02/15 [History] Cyanocobalamin (Vitamin B-12) [Vitamin B-12] 1,000 mcg PO DAILY 08/02/15 [History] Levothyroxine [Synthroid] 100 mcg PO ACBREAKFAST 08/02/15 [History] SUMAtriptan 100 mg PO .EVERY 2 HOURS PRN MDD 200 MG 08/02/15 [History] Trimethobenzamide [Tigan] 300 mg PO TID PRN 08/02/15 [History] Vitamin A 8,000 unit PO DAILY 08/02/15 [History] Vitamin E 400 unit PO DAILY 08/02/15 [History] valACYclovir [Valtrex] 500 mg PO BID PRN MDD Herpes 08/02/15 [History] Albuterol [Ventolin HFA] 2 inh IH Q6H PRN 07/28/17 [History] ClonazePAM [KlonoPIN] 0.5 mg PO BEDTIME PRN 07/28/17 [History] FLUoxetine HCl [Fluoxetine HCl] 40 mg PO DAILY 07/28/17 [History] HYDROmorphone [Dilaudid] 4 mg PO Q6H PRN #10 tablet 07/28/17 [Rx] Non-Formulary Medication [NF Drug] 10 mg PO QIDACANDBED 07/28/17 [History] Ondansetron [Zofran ODT] 8 mg SL Q8H PRN 07/28/17 [History] Polyethylene Glycol 3350 [MiraLAX] 17 gm PO DAILY PRN 07/28/17 [History] Prochlorperazine [Compro] 25 mg RC TID 07/28/17 [History] buPROPion HCL [Wellbutrin Xl] 150 mg PO DAILY 07/28/17 [History] buPROPion HCL [Wellbutrin Xl] 300 mg PO DAILY 07/28/17 [History] Past Medical History - Past Health History Medical/Surgical History: Denies Medical/Surgical History HEENT History: Reports: Impaired Vision Cardiovascular History: Reports: None Respiratory History: Reports: Asthma, COPD Gastrointestinal History: Reports: None Other Gastrointestinal History: gastroparesis Genitourinary History: Reports: None PATIENT ACCESS REPRESENTATIVE History: Reports: None Musculoskeletal History: Reports: None Neurological History: Reports: Cerebral Aneurysms Psychiatric History: Reports: None Endocrine/Metabolic History: Reports: None Hematologic History: Reports: None Immunologic History: Reports: None Oncologic (Cancer) History: Reports: None Dermatologic History: Reports: None - Infectious Disease History Infectious Disease History: Reports: Chicken Pox - Past Surgical History Head Surgeries/Procedures: Reports: None Cardiovascular Surgical History: Reports: None Respiratory Surgical History: Reports: None GI Surgical History: Reports: Cholecystectomy Female Surgical History: Reports: Tubal Ligation Endocrine Surgical History: Reports: None Musculoskeletal Surgical History: Reports: None Oncologic Surgical History: Reports: None Dermatological Surgical History: Reports: None Social & Family History - Family History Family Medical History: No Pertinent Family History - Caffeine Use Caffeine Use: Reports: None ED ROS GENERAL - Review of Systems Review Of Systems: Unable To Obtain Reason Not Obtained: Symptom severity ED EXAM, GENERAL - Physical Exam Exam: See Below Free Text/Narrative:: General Appearance: Uncomfortable with active dry heaves but not acutely toxic Skin: No rash HEENT: Normocephalic/atraumatic, sclera anicteric, mucous membranes moist Neck: Normal range of motion Chest and Lungs: Bilateral breath sounds, clear to auscultation Cardiovascular: Regular rate and rhythm, no murmur Abdomen: Soft, non-tender Back: Normal Musculoskeletal: No edema or tenderness Neurologic: Awake, alert, no obvious deficits, moving all extremities Psychiatric: Appropriate, cooperative Course - Vital Signs Last Recorded V/S: Last Vital Signs Temp 97 F 10/12/20 21:33 Pulse 110 H 10/12/20 23:39 Resp 16 10/12/20 23:39 BP 115/70 10/12/20 23:39 Pulse Ox 96 10/12/20 23:39 - Orders/Labs/Meds Orders: Active Orders 24 hr Category Date Time Status Sodium Chloride 0.9% [Saline Flush] Med 10/12/20 21:31 Active 10 ml FLUSH ASDIRECTED PRN Sodium Chloride 0.9% [Saline Flush] Med 10/12/20 21:31 Active 2.5 ml FLUSH ASDIRECTED PRN Saline Lock Insert [OM.PC] Stat Oth 10/12/20 21:31 Ordered Medication Orders Sodium Chloride (Saline Flush) 10 ml FLUSH ASDIRECTED PRN PRN Reason: Keep Vein Open Sodium Chloride (Saline Flush) 2.5 ml FLUSH ASDIRECTED PRN PRN Reason: Keep Vein Open Labs: Laboratory Tests 10/12/20 10/12/20 10/12/20 Range/Units 21:30 21:30 23:05 WBC 17.12 H (4.0-11.0) K/uL RBC 5.20 (4.30-5.90) M/uL Hgb 15.7 (12.0-16.0) g/dL Hct 46.8 H (36.0-46.0) % MCV 90.0 (80.0-98.0) fL MCH 30.2 (27.0-32.0) pg MCHC 33.5 (31.0-37.0) g/dL RDW Std Deviation 45.7 (28.0-62.0) fl RDW Coeff of Erlin 14 (11.0-15.0) % Plt Count 424 H (150-400) K/uL MPV 9.10 (7.40-12.00) fL Neut % (Auto) 90.5 H (48.0-80.0) % Lymph % (Auto) 6.3 L (16.0-40.0) % Lucas % (Auto) 2.9 (0.0-15.0) % Eos % (Auto) 0.1 (0.0-7.0) % Baso % (Auto) 0.2 (0.0-1.5) % Neut # (Auto) 15.5 H (1.4-5.7) K/uL Lymph # (Auto) 1.1 (0.6-2.4) K/uL Lucas # (Auto) 0.5 (0.0-0.8) K/uL Eos # (Auto) 0.0 (0.0-0.7) K/uL Baso # (Auto) 0.0 (0.0-0.1) K/uL Nucleated RBC % 0.0 /100WBC Nucleated RBCs # 0 K/uL Sodium 140 (136-145) mmol/L Potassium 4.3 (3.5-5.1) mmol/L Chloride 103 (98-107) mmol/L Carbon Dioxide 23.6 (21.0-32.0) mmol/L BUN 20 H (7.0-18.0) mg/dL Creatinine 1.2 H (0.6-1.0) mg/dL Est Cr Clr Drug Dosing 52.50 mL/min Estimated GFR (MDRD) 47.6 ml/min Glucose 178 H (74-106) mg/dL Calcium 10.1 (8.5-10.1) mg/dL Total Bilirubin 0.3 (0.2-1.0) mg/dL AST 21 (15-37) IU/L ALT 25 (14-63) IU/L Alkaline Phosphatase 128 H (46-116) U/L Total Protein 8.6 H (6.4-8.2) g/dL Albumin 4.4 (3.4-5.0) g/dL Globulin 4.2 H (2.6-4.0) g/dL Albumin/Globulin Ratio 1.1 (0.9-1.6) Lipase 95 (73-393) U/L Urine Color YELLOW Urine Appearance CLEAR Urine pH 5.5 (5.0-8.0) Ur Specific Reedley >= 1.030 (1.001-1.035) Urine Protein NEGATIVE (NEGATIVE) mg/dL Urine Glucose (UA) NEGATIVE (NEGATIVE) mg/dL Urine Ketones 15 H (NEGATIVE) mg/dL Urine Occult Blood NEGATIVE (NEGATIVE) Urine Nitrite NEGATIVE (NEGATIVE) Urine Bilirubin NEGATIVE (NEGATIVE) Urine Urobilinogen 0.2 (<2.0) EU/dL Ur Leukocyte Esterase NEGATIVE (NEGATIVE) Urine RBC RARE (0-2/HPF) Urine WBC 0-1 (0-5/HPF) Ur Epithelial Cells FEW (NONE-FEW) Urine Bacteria FEW (NEGATIVE) Meds: Medications Generic Name Dose Route Start Last Admin Trade Name Juhi PRN Reason Stop Dose Admin Sodium Chloride 10 ml 10/12/20 21:31 Saline Flush FLUSH ASDIRECTED PRN Keep Vein Open Sodium Chloride 2.5 ml 10/12/20 21:31 Saline Flush FLUSH ASDIRECTED PRN Keep Vein Open Discontinued Medications Generic Name Dose Route Start Last Admin Trade Name Juhi PRN Reason Stop Dose Admin Hydromorphone HCl 1 mg 10/12/20 21:32 10/12/20 21:46 Dilaudid IVPUSH 10/12/20 21:33 1 mg ONETIME ONE Administration Hydromorphone HCl 1 mg 10/12/20 22:16 10/12/20 22:42 Dilaudid IVPUSH 10/12/20 22:17 1 mg ONETIME ONE Administration Lactated Ringer's 1,000 mls @ 999 mls/hr 10/12/20 21:31 10/12/20 21:45 Ringers, Lactated IV 10/12/20 22:31 999 mls/hr .BOLUS ONE Administration Lactated Ringer's 1,000 mls @ 999 mls/hr 10/12/20 23:04 10/12/20 23:42 Ringers, Lactated IV 10/13/20 00:04 999 mls/hr .BOLUS ONE Administration Ondansetron HCl 4 mg 10/12/20 21:34 10/12/20 21:45 Zofran IVPUSH 10/12/20 21:35 4 mg ONETIME ONE Administration Departure - Departure Time of Disposition: 00:06 Disposition: Home, Self-Care 01 Condition: Good Clinical Impression: Gastroparesis - Discharge Information *PRESCRIPTION DRUG MONITORING PROGRAM REVIEWED*: Not Applicable *COPY OF PRESCRIPTION DRUG MONITORING REPORT IN PATIENT EILEEN: Not Applicable Instructions: Dehydration, Adult, [id number], Gastroparesis Forms: ED Department Discharge Additional Instructions: Please be sure to resume your normal medications. I encourage you to try small frequent meals rather than large meals as this will likely be easier for your system to handle. I encourage you to try and drink plenty of fluids throughout the day and follow-up with your primary care doctor. The following information is given to patients seen in the emergency department who are being discharged to home. This information is to outline your options for follow-up care. We provide all patients seen in our emergency department with a follow-up referral. The need for follow-up, as well as the timing and circumstances, are variable depending upon the specifics of your emergency department visit. If you don't have a primary care physician on staff, we will provide you with a referral. We always advise you to contact your personal physician following an emergency department visit to inform them of the circumstance of the visit and for follow-up with them and/or the need for any referrals to a consulting specialist. The emergency department will also refer you to a specialist when appropriate. This referral assures that you have the opportunity for follow-up care with a specialist. All of these measure are taken in an effort to provide you with optimal care, which includes your follow-up. Under all circumstances we always encourage you to contact your private physician who remains a resource for coordinating your care. When calling for follow-up care, please make the office aware that this follow-up is from your recent emergency room visit. If for any reason you are refused follow-up, please contact the [facility] Emergency Department at and asked to speak to the emergency department charge nurse. Sepsis Event Note (ED) - Evaluation Sepsis Screening Result: No Definite Risk - Focused Exam Vital Signs: Vital Signs Temp Pulse Resp BP Pulse Ox 10/12/20 23:39 110 H 16 115/70 96 10/12/20 21:33 97 F 109 H 22 H 141/71 H 95 - My Orders Last 24 Hours: My Active Orders 10/12/20 21:31 Sodium Chloride 0.9% [Saline Flush] 10 ml FLUSH ASDIRECTED PRN Sodium Chloride 0.9% [Saline Flush] 2.5 ml FLUSH ASDIRECTED PRN Saline Lock Insert [OM.PC] Stat - Assessment/Plan Last 24 Hours: My Active Orders 10/12/20 21:31 Sodium Chloride 0.9% [Saline Flush] 10 ml FLUSH ASDIRECTED PRN Sodium Chloride 0.9% [Saline Flush] 2.5 ml FLUSH ASDIRECTED PRN Saline Lock Insert [OM.PC] Stat Assessment:: 50-year-old female presenting with signs and symptoms most consistent with gastroparesis exacerbation. Patient has been very well controlled over the last few years and has not had to come to the hospital since 2017. However, other etiologies considered as well. No chest pain that would suggest Boerhaave's. CBC CMP lipase are pending LR Zofran and Dilaudid ordered for symptoms and will reassess. No focal abdominal tenderness that would suggest other acute abdominal process at this time. Given her long history of narcotic dependence I do not think strategy such as Reglan or Haldol will be of much benefit in this case and I think it most prudent to proceed with IV Dilaudid. 2200: Patient's labs notable for significant hemoconcentration and dehydration. However given severity of leukocytosis and her now reported recent UTI. Will add urinalysis and CT abdomen pelvis. Patient symptoms improved but still has some pain will reassess need for additional dosing. 2300: CT with several ileocolic lymph nodes that are enlarged raising the possibility of enterocolitis. But there is no bowel wall thickening noted no small bowel obstruction etc. No diverticulitis no appendicitis. Patient was given a second dose of 1 mg of Dilaudid for ongoing symptoms and will continue to reassess. Patient will be given a second liter of lactated Ringer's for the significant dehydration evident on her CBC in which displays significant hemoconcentration. 0005: Patient symptoms are significantly improved she is now tolerating p.o. We will allow the remainder of the IV fluid to finish the patient I are comfortable with her going home return precautions discussed and understood.
[2020-10-12 21:56] LABS: CARBON DIOXIDE,CO2 23.6 mmol/L (21.0-32.0); POTASSIUM,K 4.3 mmol/L (3.5-5.1)
--- NOTE | 2020-10-12 22:48 | CT ---
INDICATION: Severe abdominal pain, vomiting, recent urinary tract infection treatment, and significant leukocytosis TECHNIQUE: CT Abdomen and pelvis without i.v. contrast. Coronal and sagittal reformats were obtained. COMPARISON: None FINDINGS: Lower chest: Unremarkable. Liver: Unremarkable. Spleen: Unremarkable. Pancreas: Unremarkable. Gallbladder: Previous cholecystectomy noted without significant intra- or extrahepatic biliary ductal dilatation seen. Kidney: Cortical scarring is seen in the upper pole of the right kidney. Punctate intrarenal stones are present bilaterally without obstruction. Adrenal: Unremarkable. Bowel: Small sliding type esophageal hiatal hernia (type I) is present. The appendix is normal in appearance and size. Vascular: Unremarkable. Lymph: Several ileocolic lymph nodes are present measuring up to 9 mm. Peritoneum: Unremarkable. No pneumoperitoneum is seen. No significant ascites is noted. Pelvis: Unremarkable. Soft tissue: Unremarkable. Bone: Unremarkable for age. IMPRESSION: 1. Several ileocolic lymph nodes are present measuring up to 9 mm. Correlation with any recent colonoscopy or barium enema studies are recommended. Dictated by Gregg Johansen MD @ 10/12/2020 10:40:10 PM Please note that all CT scans at this facility use dose modulation, iterative reconstruction, and/or weight-based dosing when appropriate to reduce radiation dose to as low as reasonably achievable. Dictated by: Gregg Johansen MD @ 10/12/2020 22:47:00 (Electronically Signed)
[2020-10-12 23:39] VITALS: BP 115/70; PULSE 110
[2020-10-13] MEDS ORDERED: Ondansetron 4 MG/2 ML SDV IVPUSH ONE (00:20)
== END 2020-10-13 00:35 | disposition home or self-care (01) ==
LOC: MW.ED 21:10
DX: K31.84 Gastroparesis (principal); J44.9 Chronic obstructive pulmonary disease, unspecified; Z88.1 Allergy status to other antibiotic agents; Z88.8 Allergy status to other drugs, medicaments and biological substances; Z91.041 Radiographic dye allergy status; Z79.899 Other long term (current) drug therapy
CPT/HCPCS: 36415; 74176; 80053; 81001; 83690; 85025; 96374; 96375; 96376; 99284; J1170; J2405; J7120; 99283

== ENCOUNTER 2020-10-15 17:31 | Emergency (ER) | payer BC ==
[2020-10-15] MEDS ORDERED: diphenhydrAMINE 50 MG/ML SDV IVPUSH ONE (17:59)
[2020-10-15] MEDS ORDERED: Haloperidol Lactate 5 MG/ML SDV IM ONE (17:59)
[2020-10-15] MEDS ORDERED: Dextrose 5%-0.9% NaCl 1,000 ML IV SCH (18:00)
[2020-10-15] MEDS ORDERED: Sodium Chloride 0.9% 10 ML Syringe FLUSH PRN (18:04)
[2020-10-15] MEDS ORDERED: Sodium Chloride 0.9% 2.5 ML Syringe FLUSH PRN (18:04)
[2020-10-15 18:31] LABS: CARBON DIOXIDE,CO2 23.7 mmol/L (21.0-32.0); POTASSIUM,K 3.8 mmol/L (3.5-5.1)
[2020-10-15] MEDS ORDERED: Ondansetron 4 MG/2 ML SDV IVPUSH ONE ×2 (20:16→22:39)
[2020-10-15] MEDS ORDERED: Iopamidol 755 MG/ML 500 ML Multipack Bottle IVPUSH STA (20:23)
[2020-10-15] MEDS ORDERED: Sodium Chloride 0.9% 1,000 ML IV STA (20:28)
--- NOTE | 2020-10-15 20:40 | CT ---
HISTORY: Abdominal pain. COMPARISON: 10/12/2020. TECHNIQUE: CT of the abdomen and pelvis. 80 cc of Isovue-370 IV. Coronal/sagittal reconstruction images. FINDINGS: Lung bases: There is no pleural or pericardial effusion. The heart size is normal. There is no acute airspace disease. There is no basilar pneumothorax. Abdomen/pelvis: The liver morphology is non cirrhotic. There is no solid hepatic mass. There is no perihepatic ascites. Cholecystectomy. The spleen size is normal. There is no adrenal mass. There are symmetric nephrograms. There is no solid renal mass. There is no perinephric fluid. Benign right renal cyst. Tiny left renal hypodensities, too small to further characterize. There is no pancreatic mass or pancreatic duct dilation. No glandular atrophy. Urinary bladder is normal. There is no adnexal mass. There is no evidence for a small bowel or colonic obstruction. There is no mucosal hyper enhancement. There is no pelvic sidewall lymphadenopathy. The retroperitoneum and gastrohepatic ligament are normal. Non aneurysmal abdominal aorta. Numerous right lower quadrant lymph nodes are stable from previous, measuring up to 9 mm in short axis dimension on image 89 of series 201. The bone windows demonstrate no suspicious bone lesions. The alignment is preserved on sagittal reconstruction images. There is disc height loss and osteophytic spurring at L5-S1. IMPRESSION: 1. No findings are seen to explain the patient`s symptoms. 2. Stable CT when compared with 10/12/2020. Please note that all CT scans at this facility use dose modulation, iterative reconstruction, and/or weight-based dosing when appropriate to reduce radiation dose to as low as reasonably achievable. Dictated by Josafat Boyer MD @ Oct 15 2020 8:34PM Signed by Dr. Josafat Boyer @ Oct 15 2020 8:39PM
--- NOTE | 2020-10-15 20:43 | CR ---
INDICATION: Chest pain and shortness of breath TECHNIQUE: Chest 1 views COMPARISON: FINDINGS: Cardiovascular and mediastinum: Heart size and vasculature are normal in caliber and appearance. Lungs and pleural spaces: Lungs are clear. No sign of infiltrate or mass. No sign of pleural effusion. No pneumothorax. Bones and soft tissues: No significant findings. IMPRESSION: No acute findings and no significant changes from the prior exam. Dictated by Brandon Chung MD @ Oct 15 2020 8:41PM Signed by Dr. Brandon Chung @ Oct 15 2020 8:42PM
[2020-10-15] MEDS ORDERED: HYDROmorphone 1 MG/ML Syringe IVPUSH ONE (22:30)
--- NOTE | 2020-10-15 22:36 | EDM.PDOC ---
ED HPI GENERAL MEDICAL PROBLEM - General Chief Complaint: Abdominal Pain Stated Complaint: ABDOMINAL PAIN VOMITING Time Seen by Provider: 10/15/20 18:00 Source of Information: Reports: Patient History Limitations: Reports: No Limitations - History of Present Illness INITIAL COMMENTS - FREE TEXT/NARRATIVE: HISTORY AND PHYSICAL: History of present illness: Patient is a 50-year-old female who presents emergency room today with concern of nausea and vomiting. Patient has a history of gastroparesis on chronic Dilaudid. Patient states she takes at her baseline 4 to 6 mg of Dilaudid daily and during an exacerbation takes 8 to 10 mg of Dilaudid daily. Patient states her last dose of Dilaudid was 2 mg just before coming to the emergency room. Patient presents with abdominal pain and nonbloody nonbilious emesis that she was seen from the ED for on 10/12/2020. Patient states that she has been periodically vomiting since discharge from the facility. Patient states that she also uses chronic marijuana medicinally. Patient is here with her who states that patient has had issues with "gastroparesis unspecified". Patient has been on chronic opioid management for several years and has been increasing her dose of use states and is requiring more more opioids for her chronic gastroparesis. Patient states that no one "understands "her pain and states that "nothing else besides opioid medication will help ". Patient states the only thing that will stop her vomiting today is "more Dilaudid ". states that patient does not ever leave her house or get out of bed due to her pain / gastroparesis. states that she lays in bed "99%" of her life. Patient denies fever, chills, chest pain, shortness of breath, or cough. Denies headache, neck stiff ness, change in vision, syncope, or near syncope. Denies diarrhea, constipation, or dysuria. Has not noted any blood in urine or stool. Review of systems: As per history of present illness and below otherwise all systems reviewed and negative. Past medical history: As per history of present illness and as reviewed below otherwise noncontributory. Surgical history: As per history of present illness and as reviewed below otherwise noncontributory. Social history: See social history for further information Family history: As per history of present illness and as reviewed below otherwise noncontributory. Physical exam: General: Patient is alert, oriented, and in no acute distress. Patient siting on exam table making retching noises without production of emesis. HEENT: Atraumatic, normocephalic, pupils equal and reactive bilaterally, negative for conjunctival pallor or scleral icterus, mucous membranes moist, TMs normal bilaterally, throat clear, neck supple, nontender, trachea midline. No drooling or trismus noted. No meningeal signs. No hot potato voice noted. Lungs: Clear to auscultation, breath sounds equal bilaterally, chest nontender. Heart: S1S2, regular rate and rhythm without overt murmur Abdomen: Exam of abdomen limited due to patient retching. Otherwise, Soft, nondistended, generalized tenderness to palpation. Negative for masses or hepatosplenomegaly. Negative for costovertebral tenderness. Pelvis: Stable nontender. Genitourinary: Deferred. Rectal: Deferred. Skin: Intact, warm, dry. No lesions or rashes noted. Extremities: Atraumatic, negative for cords or calf pain. Neurovascular unremarkable. Neuro: Awake, alert, oriented. Cranial nerves II through XII unremarkable. Cerebellum unremarkable. Motor and sensory unremarkable throughout. Exam no nfocal. Notes: Upon arrival, patient is dry heaving/ retching without production of vomitus. Haldol/Benadryl/Fluids initiated. Patient has resolution of dry heaving with therapeutics. Patient states that she has a dislike of IV contrast but she has not had any allergic reactions. Patient states that she does take Benadryl before IV contrast, that she does not get symptoms. After giving IV contrast, patient states she feels as if her throat is swelling. No lip edema, tongue edema, or oropharyngeal edema. No stridor. Patient continually monitored without signs of lip, tongue, oropharyngeal edema, or stridor. Patient does have return of dry heaving / retching that resolves with dilaudid. Patient well appearing / able to tolerate po intake. 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 I also discussed with patient the importance for follow-up with her senior tableau developer who initially had been managing her gastroparesis for more appropriate management of her pain/vomiting due to gastroparesis as patients quality of life over the years of senior care opioid use has restricted her to her bedroom all day and every day. Signs and symptoms that would prompt return to the ED thoroughly discussed with patient. Discussed the importance for follow-up with her primary care provider and her senior tableau developer. Diagnostics: CBC, CMP, UA, hcg, Abd/Pelvic W cont, CXR, Trop, lipase Therapeutics: NS, Zofran, Haldol, Benadryl, Dilaudid Prescription: None Impression: Nausea and vomiting Gastroparesis Chronic use of opioid medication Plan: 1. Encourage small but frequent sips of fluid to prevent dehydration. Advance diet as tolerated starting with liquid diet. 2. Follow-up with your senior tableau developer, and primary care provider as discussed. Return to the ED as needed and as discussed. 3. You can alternate ibuprofen and Tylenol as directed for pain and discomfort. Definitive disposition and diagnosis as appropriate pending reevaluation and re view of above. abdomen Pain Score (Numeric/FACES): 50 - Related Data Allergies Allergy/AdvReac Type Severity Reaction Status Date / Time chlorpromazine Allergy Seizure Verified 10/15/20 18:07 doxycycline Allergy Cannot Verified 10/15/20 18:07 Remember iopamidol [From [id number]] Allergy Burning Verified 10/15/20 18:07 olanzapine [From Zyprexa] Allergy Hyperactivi Verified 10/15/20 18:07 ty promethazine HCl Allergy Hallucinati Verified 10/15/20 18:07 [From Phenergan] ons Home Meds: Home Meds Cetirizine HCl [Zyrtec] 10 mg PO DAILY 12/09/14 [History] Fluticasone/Salmeterol [Advair 250-50] 1 puff INH BID 12/09/14 [History] Omeprazole 1 tab PO DAILY 12/09/14 [History] Zolpidem [Ambien] 10 mg PO BEDTIME 12/09/14 [History] Cholecalciferol (Vitamin D3) [Vitamin D3] 5,000 unit PO DAILY 08/02/15 [History] Cyanocobalamin (Vitamin B-12) [Vitamin B-12] 1,000 mcg PO DAILY 08/02/15 [History] Levothyroxine [Synthroid] 100 mcg PO ACBREAKFAST 08/02/15 [History] SUMAtriptan 100 mg PO .EVERY 2 HOURS PRN MDD 200 MG 08/02/15 [History] Trimethobenzamide [Tigan] 300 mg PO TID PRN 08/02/15 [History] Vitamin A 8,000 unit PO DAILY 08/02/15 [History] Vitamin E 400 unit PO DAILY 08/02/15 [History] valACYclovir [Valtrex] 500 mg PO BID PRN MDD Herpes 08/02/15 [History] Albuterol [Ventolin HFA] 2 inh IH Q6H PRN 07/28/17 [History] ClonazePAM [KlonoPIN] 0.5 mg PO BEDTIME PRN 07/28/17 [History] FLUoxetine HCl [Fluoxetine HCl] 40 mg PO DAILY 07/28/17 [History] HYDROmorphone [Dilaudid] 4 mg PO Q6H PRN #10 tablet 07/28/17 [Rx] Non-Formulary Medication [NF Drug] 10 mg PO QIDACANDBED 07/28/17 [History] Ondansetron [Zofran ODT] 8 mg SL Q8H PRN 07/28/17 [History] Polyethylene Glycol 3350 [MiraLAX] 17 gm PO DAILY PRN 07/28/17 [History] Prochlorperazine [Compro] 25 mg RC TID 07/28/17 [History] buPROPion HCL [Wellbutrin Xl] 150 mg PO DAILY 07/28/17 [History] buPROPion HCL [Wellbutrin Xl] 300 mg PO DAILY 07/28/17 [History] Past Medical History - Past Health History Medical/Surgical History: Denies Medical/Surgical History HEENT History: Reports: Impaired Vision Cardiovascular History: Reports: None Respiratory History: Reports: Asthma, COPD Gastrointestinal History: Reports: None Other Gastrointestinal History: gastroparesis Genitourinary History: Reports: None PERINATAL SPECIALIST History: Reports: None Musculoskeletal History: Reports: None Neurological History: Reports: Cerebral Aneurysms Psychiatric History: Reports: None Endocrine/Metabolic History: Reports: None Hematologic History: Reports: None Immunologic History: Reports: None Oncologic (Cancer) History: Reports: None Dermatologic History: Reports: None - Infectious Disease History Infectious Disease History: Reports: Chicken Pox - Past Surgical History Head Surgeries/Procedures: Reports: None HEENT Surgical History: Reports: LASIK Cardiovascular Surgical History: Reports: None Respiratory Surgical History: Reports: None GI Surgical History: Reports: Cholecystectomy Female Surgical History: Reports: Tubal Ligation Endocrine Surgical History: Reports: None Other Neurological Surgeries/Procedures: brain coiles Musculoskeletal Surgical History: Reports: None Oncologic Surgical History: Reports: None Dermatological Surgical History: Reports: None Social & Family History - Family History Family Medical History: No Pertinent Family History - Tobacco Use Tobacco Use Status *Q: Never Tobacco User - Caffeine Use Caffeine Use: Reports: None - Recreational Drug Use Recreational Drug Use: Yes Recreational Drug Type: Reports: Marijuana/Hashish Recreational Drug Use Frequency: Daily ED ROS GENERAL - Review of Systems Review Of Systems: Comprehensive ROS is negative, except as noted in HPI. ED EXAM, GENERAL - Physical Exam Exam: See Below (See dictation) Course - Vital Signs Last Recorded V/S: Last Vital Signs Temp 98.2 F 10/15/20 23:00 Pulse 87 10/15/20 23:00 Resp 18 10/15/20 23:00 BP 148/86 H 10/15/20 23:00 Pulse Ox 97 10/15/20 23:00 - Orders/Labs/Meds Labs: Laboratory Tests 10/15/20 10/15/20 10/15/20 Range/Units 18:05 18:05 18:05 WBC 12.00 H (4.0-11.0) K/uL RBC 5.36 (4.30-5.90) M/uL Hgb 16.1 H (12.0-16.0) g/dL Hct 48.1 H (36.0-46.0) % MCV 89.7 (80.0-98.0) fL MCH 30.0 (27.0-32.0) pg MCHC 33.5 (31.0-37.0) g/dL RDW Std Deviation 45.0 (28.0-62.0) fl RDW Coeff of [place] 14 (11.0-15.0) % Plt Count 440 H (150-400) K/uL MPV 9.00 (7.40-12.00) fL Neut % (Auto) 69.0 (48.0-80.0) % Lymph % (Auto) 16.3 (16.0-40.0) % [place] % (Auto) 7.5 (0.0-15.0) % Eos % (Auto) 6.9 (0.0-7.0) % Baso % (Auto) 0.3 (0.0-1.5) % Neut # (Auto) 8.3 H (1.4-5.7) K/uL Lymph # (Auto) 2.0 (0.6-2.4) K/uL [place] # (Auto) 0.9 H (0.0-0.8) K/uL Eos # (Auto) 0.8 H (0.0-0.7) K/uL Baso # (Auto) 0.0 (0.0-0.1) K/uL Nucleated RBC % 0.0 /100WBC Nucleated RBCs # 0 K/uL Sodium 141 (136-145) mmol/L Potassium 3.8 (3.5-5.1) mmol/L Chloride 102 (98-107) mmol/L Carbon Dioxide 23.7 (21.0-32.0) mmol/L BUN 16 (7.0-18.0) mg/dL Creatinine 1.1 H (0.6-1.0) mg/dL Est Cr Clr Drug Dosing 63.94 mL/min Estimated GFR (MDRD) 52.6 ml/min Glucose 149 H (74-106) mg/dL POC Glucose (60-110) mg/dL Calcium 9.5 (8.5-10.1) mg/dL Total Bilirubin 0.6 (0.2-1.0) mg/dL AST 35 (15-37) IU/L ALT 39 (14-63) IU/L Alkaline Phosphatase 118 H (46-116) U/L Troponin I < 0.050 (0.000-0.056) ng/mL Total Protein 8.6 H (6.4-8.2) g/dL Albumin 4.4 (3.4-5.0) g/dL Globulin 4.2 H (2.6-4.0) g/dL Albumin/Globulin Ratio 1.1 (0.9-1.6) Lipase 172 (73-393) U/L Urine Color Urine Appearance Urine pH (5.0-8.0) Ur Specific [place] (1.001-1.035) Urine Protein (NEGATIVE) mg/dL Urine Glucose (UA) (NEGATIVE) mg/dL Urine Ketones (NEGATIVE) mg/dL Urine Occult Blood (NEGATIVE) Urine Nitrite (NEGATIVE) Urine Bilirubin (NEGATIVE) Urine Urobilinogen (<2.0) EU/dL Ur Leukocyte Esterase (NEGATIVE) 10/15/20 10/15/20 Range/Units 18:15 21:15 WBC (4.0-11.0) K/uL RBC (4.30-5.90) M/uL Hgb (12.0-16.0) g/dL Hct (36.0-46.0) % MCV (80.0-98.0) fL MCH (27.0-32.0) pg MCHC (31.0-37.0) g/dL RDW Std Deviation (28.0-62.0) fl RDW Coeff of [place]lin (11.0-15.0) % Plt Count (150-400) K/uL MPV (7.40-12.00) fL Neut % (Auto) (48.0-80.0) % Lymph % (Auto) (16.0-40.0) % [place] % (Auto) (0.0-15.0) % Eos % (Auto) (0.0-7.0) % Baso % (Auto) (0.0-1.5) % Neut # (Auto) (1.4-5.7) K/uL Lymph # (Auto) (0.6-2.4) K/uL [place] # (Auto) (0.0-0.8) K/uL Eos # (Auto) (0.0-0.7) K/uL Baso # (Auto) (0.0-0.1) K/uL Nucleated RBC % /100WBC Nucleated RBCs # K/uL Sodium (136-145) mmol/L Potassium (3.5-5.1) mmol/L Chloride (98-107) mmol/L Carbon Dioxide (21.0-32.0) mmol/L BUN (7.0-18.0) mg/dL Creatinine (0.6-1.0) mg/dL Est Cr Clr Drug Dosing mL/min Estimated GFR (MDRD) ml/min Glucose (74-106) mg/dL POC Glucose 144 H (60-110) mg/dL Calcium (8.5-10.1) mg/dL Total Bilirubin (0.2-1.0) mg/dL AST (15-37) IU/L ALT (14-63) IU/L Alkaline Phosphatase (46-116) U/L Troponin I (0.000-0.056) ng/mL Total Protein (6.4-8.2) g/dL Albumin (3.4-5.0) g/dL Globulin (2.6-4.0) g/dL Albumin/Globulin Ratio (0.9-1.6) Lipase (73-393) U/L Urine Color YELLOW Urine Appearance CLEAR Urine pH 7.5 (5.0-8.0) Ur Specific [place] 1.015 (1.001-1.035) Urine Protein NEGATIVE (NEGATIVE) mg/dL Urine Glucose (UA) 250 H (NEGATIVE) mg/dL Urine Ketones NEGATIVE (NEGATIVE) mg/dL Urine Occult Blood NEGATIVE (NEGATIVE) Urine Nitrite NEGATIVE (NEGATIVE) Urine Bilirubin NEGATIVE (NEGATIVE) Urine Urobilinogen 0.2 (<2.0) EU/dL Ur Leukocyte Esterase NEGATIVE (NEGATIVE) Meds: Medications Discontinued Medications Generic Name Dose Route Start Last Admin Trade Name Chanoq PRN Reason Stop Dose Admin Diphenhydramine HCl 50 mg 10/15/20 17:59 10/15/20 18:04 Benadryl IVPUSH 10/15/20 18:00 50 mg ONETIME ONE Administration Haloperidol Lactate 5 mg 10/15/20 17:59 10/15/20 18:14 Haldol IM 10/15/20 18:00 5 mg ONETIME ONE Administration Hydromorphone HCl 1 mg 10/15/20 22:30 10/15/20 22:36 Dilaudid IVPUSH 10/15/20 22:31 1 mg ONETIME ONE Administration Dextrose/Sodium Chloride 1,000 mls @ 999 mls/hr 10/15/20 18:00 10/15/20 18:14 Dextrose 5%-Normal Saline IV 999 mls/hr ASDIRECTED SHAWN Administration Sodium Chloride 1,000 mls @ 999 mls/hr 10/15/20 20:28 10/15/20 20:30 Normal Saline IV 10/15/20 21:28 999 mls/hr NOW STA Administration Iopamidol 80 ml 10/15/20 20:23 10/15/20 20:24 Isovue Multipack-370 (76%) IVPUSH 10/15/20 20:24 80 ml ONETIME STA Administration Ondansetron HCl 4 mg 10/15/20 20:16 10/15/20 20:24 Zofran IVPUSH 10/15/20 20:17 4 mg ONETIME ONE Administration Ondansetron HCl 4 mg 10/15/20 22:39 10/15/20 22:41 Zofran IVPUSH 10/15/20 22:40 4 mg ONETIME ONE Administration Ondansetron HCl Confirm 10/15/20 22:40 Zofran Administered 10/15/20 22:41 Dose 4 mg .ROUTE .STK-MED ONE Sodium Chloride 10 ml 10/15/20 18:04 10/15/20 18:16 Saline Flush FLUSH 10 ml ASDIRECTED PRN Administration Keep Vein Open Sodium Chloride 2.5 ml 10/15/20 18:04 10/15/20 18:16 Saline Flush FLUSH 2.5 ml ASDIRECTED PRN Administration Keep Vein Open Departure - Departure Time of Disposition: 22:34 Disposition: Home, Self-Care 01 Clinical Impression: Gastroparesis, Chronic, continuous use of opioids Nausea & vomiting Qualifiers: Vomiting type: unspecified Vomiting Intractability: non-intractable Qualified Code(s): R11.2 - Nausea with vomiting, unspecified - Discharge Information Instructions: Nausea and Vomiting, Adult, Gastroparesis Referrals: PCP,None [Primary Care Provider] - Forms: ED Department Discharge Additional Instructions: The following information is given to patients seen in the emergency department who are being discharged to home. This information is to outline your options for follow-up care. We provide all patients seen in our emergency department with a follow-up referral. The need for follow-up, as well as the timing and circumstances, are variable depending upon the specifics of your emergency department visit. If you don't have a primary care physician on staff, we will provide you with a referral. We always advise you to contact your personal physician following an emergency department visit to inform them of the circumstance of the visit and for follow-up with them and/or the need for any referrals to a consulting specialist. The emergency department will also refer you to a specialist when appropriate. This referral assures that you have the opportunity for follow-up care with a specialist. All of these measure are taken in an effort to provide you with optimal care, which includes your follow-up. Under all circumstances we always encourage you to contact your private physician who remains a resource for coordinating your care. When calling for follow-up care, please make the office aware that this follow-up is from your recent emergency room visit. If for any reason you are refused follow-up, please contact the [facility] Emergency Department at and asked to speak to the emergency department charge nurse. [facility] [address] [place] [id number] [address] [address] 1. Encourage small but frequent sips of fluid to prevent dehydration. Advance diet as tolerated starting with liquid diet. 2. Follow-up with your senior tableau developer, and primary care provider as discussed. Return to the ED as needed and as discussed. 3. You can alternate ibuprofen and Tylenol as directed for pain and discomfort. Sepsis Event Note (ED) - Evaluation Sepsis Screening Result: No Definite Risk
[2020-10-15] MEDS ORDERED: Ondansetron 4 MG/2 ML SDV ONE (22:40)
[2020-10-15 23:08] VITALS: BP 148/86; PULSE 87
--- NOTE | 2020-10-16 06:20 | PCM.EKG ---
#1 Interpretation EKG Date: 10/15/20 Time: 18:15 Rhythm: NSR Rate (Beats/Min): 98 [place]: Normal P-Wave: Present QRS: Normal ST-T: Normal QT: Normal Comparison: No Change (08/02/15) EKG Interpretation Comments: Sinus Rhythm
== END 2020-10-15 23:00 | disposition home or self-care (01) ==
LOC: MW.ED 17:31
DX: R11.2 Nausea with vomiting, unspecified (principal); K31.84 Gastroparesis; F11.90 Opioid use, unspecified, uncomplicated; J44.9 Chronic obstructive pulmonary disease, unspecified; Z88.1 Allergy status to other antibiotic agents; Z91.041 Radiographic dye allergy status; Z88.8 Allergy status to other drugs, medicaments and biological substances; Z79.899 Other long term (current) drug therapy
CPT/HCPCS: 36415; 71045; 74177; 80053; 81003; 82962; 83690; 84484; 85025; 93005; 96372; 96374; 96375; 96376; 99284; J1170; J1200; J1630; J2405; J7030; J7042; Q9967; 93010; 99283

== ENCOUNTER 2021-07-12 03:32 | Inpatient (IN) | payer BC ==
[2021-07-12] MEDS ORDERED: diphenhydrAMINE 50 MG/ML SDV IVPUSH ONE ×3 (03:44→11:18)
[2021-07-12] MEDS ORDERED: Haloperidol Lactate 5 MG/ML SDV IM ONE ×2 (03:44→04:22)
[2021-07-12] MEDS ORDERED: Metoclopramide 10 MG/2 ML SDV IVPUSH ONE (03:45)
[2021-07-12] MEDS ORDERED: HYDROmorphone 1 MG/ML Syringe IVPUSH ONE ×2 (03:49→04:22)
[2021-07-12] MEDS ORDERED: Ondansetron 4 MG/2 ML SDV IVPUSH ONE ×3 (03:50→15:45)
[2021-07-12] MEDS ORDERED: Lactated Ringers 1,000 ML IV SCH ×4 (04:00→15:45)
--- NOTE | 2021-07-12 04:01 | EDM.PDOC ---
<Sadi Gaffney - Last Filed: 07/12/21 06:46> ED HPI GENERAL MEDICAL PROBLEM - General Stated Complaint: CANT STOP THROWING UP Time Seen by Provider: 07/12/21 03:42 - History of Present Illness INITIAL COMMENTS - FREE TEXT/NARRATIVE: CHIEF COMPLAINT(S): Vomiting HISTORY OF PRESENT ILLNESS: This is a 51-year-old woman with a past medical history of gastroparesis, hypothyroidism, chronic opioid use with recent urinary tract infection on nitrofurantoin who comes to the emergency department with a chief complaint of vomiting. Patient states that she has been on antibiotics for the last 3 days and it has been upsetting her stomach causing her to vomit. She states that she starting today has not been able to tolerate any p.o. and has been persistently vomiting for approximately 15 hours. She states that she is experiencing total body pain which she rates as 10 out of 10 and feels like it is a vicious cycle. She states the vomiting causes the pain and the pain causes the vomiting. She has not been able to take her Dilaudid at home and she requests nausea medication specifically Zofran. She states that in regards to her urinary tract infection that has been improving. She denies any fevers, chills, dysuria or hematuria. She denies any back pain. She describes her whole body as an pain and achy. There are no relieving factors. REVIEW OF SYSTEMS: Constitutional: Denies fever, chills. Eyes: Denies eye pain Ears, Nose, Mouth, & Throat: Denies earache Cardiovascular: Denies chest pain Respiratory: Denies shortness of breath Gastrointestinal: Positive for nausea and vomiting. Denies, diarrhea, hem atochezia. Genitourinary: Denies hematuria Skin:Denies a rash MSK: Positive for total body pain Neurological: Denies blurred vision Psychiatric: Denies depression PAST MEDICAL HISTORY: As per history of present illness and as reviewed below otherwise noncontributory. SURGICAL HISTORY: As per history of present illness and as reviewed below otherwise noncontributory. SOCIAL HISTORY: As per history of present illness and as reviewed below otherwise noncontributory. FAMILY HISTORY: As per history of present illness and as reviewed below otherwise noncontributory. EXAMINATION OF ORGAN SYSTEMS/BODY AREAS: Constitutional: Blood pressure, HR, RR, Temp General: Middle-aged woman who appears to be in a moderate amount of pain. Patient is pale, clammy. Psychiatric: Appropriate mood and affect. Eyes: No scleral icterus or conjunctival erythema ENMT: Moist mucous membranes. No pharyngeal erythema Cardiovascular: Regular, rate, and rhythm. No gallops, murmurs, or rubs. Bilateral upper extremity pulses symmetric and intact. No peripheral edema. No JVD. Respiratory: Lungs clear to auscultation bilaterally. No wheezes, rales, or rhonchi. Gastrointestinal: Soft, non-tender, non-distended. Normoactive bowel sounds Genitourinary: No suprapubic tenderness Musculoskeletal: Normal range of motion. Skin: No lesions or abrasions. Piloerection noted. Neurological: Alert, GCS 15 MEDICAL DECISION MAKING AND COURSE IN THE ED WITH INTERPRETATION/REVIEW OF DIAGNOSTIC STUDIES: This is a 51-year-old woman with a past medical history of gastroparesis, hypothyroidism, chronic opioid use with recent urinary tract infection on nitrofurantoin who comes to the emergency department with a chief complaint of vomiting for approximately 15 hours reportedly due to antibiotic use. At this time given the patient's history differential also includes opioid withdrawal given the patient is on hefty doses of Dilaudid at home. This all could be exacerbated by the nausea and vomiting from her antibiotic. The patient does not otherwise appear to be in acute distress. Obtain a screening EKG as this could be atypical ACS and provide the patient with metoclopramide IV, Zofran IV and 1 mg of Dilaudid IV. We will provide the patient 1 L of lactated Ringer's bolus. We will obtain screening labs. I do not believe any imaging is indicated at this time. Patient was amenable to this plan. DDx: ACS, gastroparesis exacerbation, opioid withdrawal After initial treatment the patient continued to report increased pain and nausea therefore I provided the patient with an additional 1 mg of Dilaudid, 25 mg of Benadryl and 2.5 mg of Haldol. We will reevaluate. Laboratory: CBC reveals a leukocytosis of 17.25 with neutrophilic predominance with thrombocytosis at 454 and elevated hematocrit of 46.4. I do believe these are likely secondary to hemoconcentration. INR is normal. CMP reveals elevated creatinine at 1.2 which is up from July 05, 2021 at 1.1, hyperglycemia 200, elevated alkaline phosphatase at 138 otherwise unremarkable. Troponin is negative. hCG is negative. Lactic acid is 4.2. Although the lactic acid is elevated at 4.2 the patient does not meet any criteria as evidence as the patient does not have any fever greater than 38.3 or hypothermia less than 36, the patient does not have a heart rate greater than 90, respiratory rate greater than 20. The patient does not meet SIRS criteria and I do believe the patient's lactic acidosis is likely secondary to dehydration secondary to her continued vomiting. A 30 cc/kg bolus was provided given the lactic acidosis we will hold off on blood cultures and antibiotics at this time. Even though the patient does have a known infection diagnosed on July 05, 2021 in her urine patient does not meet severe sepsis criteria at this time. On reevaluation patient reported symptomatic improvement in her pain and nausea. She currently rates her pain as 3 out of 10 and is asking for ice chips. Therefore we provided the patient with ice chips. On reevaluation patient reported improvement and would like to go home. I did discuss that given the increased lactic acid I would like to obtain a repeat lactic lactic acid. She was amenable to this plan. Laboratory: Repeat lactic acid is 4.2. It is uncertain as to if this is a lab error however we will obtain blood cultures. We will still hold off on antibiotics at this time as the patient still does not meet any SIRS or septic criteria. Patient is able to urinate at this time therefore we will send a urinalysis and evaluate that and obtain a repeat lactic acid given the possibility of lab error. DISPOSITION: [facility] pending repeat lactic acid, reevaluation and final disposition CONDITION: Fair PROCEDURES: None FINAL IMPRESSION(S)/DIAGNOSES: 1. Acute vomiting likely multifactorial secondary to opioid withdrawal/dehydration/gastroparesis 2. Acute lactic acidosis likely secondary #1 Sadi Gaffney M.D. Abdomen Pain Score (Numeric/FACES): 9 - Related Data Allergies Allergy/AdvReac Type Severity Reaction Status Date / Time chlorpromazine Allergy Seizure Verified 07/12/21 04:20 doxycycline Allergy Cannot Verified 07/12/21 04:20 Remember iopamidol [From [id number]] Allergy Burning Verified 07/12/21 04:20 olanzapine [From Zyprexa] Allergy Hyperactivi Verified 07/12/21 04:20 ty promethazine HCl Allergy Hallucinati Verified 07/12/21 04:20 [From Phenergan] ons Home Meds: Home Meds Cetirizine HCl [Zyrtec] 10 mg PO DAILY 12/09/14 [History] Fluticasone/Salmeterol [Advair 250-50] 1 puff INH BID 12/09/14 [History] Omeprazole 1 tab PO DAILY 12/09/14 [History] Zolpidem [Ambien] 10 mg PO BEDTIME 12/09/14 [History] Cholecalciferol (Vitamin D3) [Vitamin D3] 5,000 unit PO DAILY 08/02/15 [History] Cyanocobalamin (Vitamin B-12) [Vitamin B-12] 1,000 mcg PO DAILY 08/02/15 [History] Levothyroxine [Synthroid] 100 mcg PO ACBREAKFAST 08/02/15 [History] SUMAtriptan 100 mg PO .EVERY 2 HOURS PRN MDD 200 MG 08/02/15 [History] Trimethobenzamide [Tigan] 300 mg PO TID PRN 08/02/15 [History] Vitamin A 8,000 unit PO DAILY 08/02/15 [History] Vitamin E 400 unit PO DAILY 08/02/15 [History] valACYclovir [Valtrex] 500 mg PO BID PRN MDD Herpes 08/02/15 [History] Albuterol [Ventolin HFA] 2 inh IH Q6H PRN 07/28/17 [History] ClonazePAM [KlonoPIN] 0.5 mg PO BEDTIME PRN 07/28/17 [History] FLUoxetine HCl [Fluoxetine HCl] 40 mg PO DAILY 07/28/17 [History] HYDROmorphone [Dilaudid] 4 mg PO Q6H PRN #10 tablet 07/28/17 [Rx] Non-Formulary Medication [NF Drug] 10 mg PO QIDACANDBED 07/28/17 [History] Ondansetron [Zofran ODT] 8 mg SL Q8H PRN 07/28/17 [History] Polyethylene Glycol 3350 [MiraLAX] 17 gm PO DAILY PRN 07/28/17 [History] Prochlorperazine [Compro] 25 mg RC TID 07/28/17 [History] buPROPion HCL [Wellbutrin Xl] 150 mg PO DAILY 07/28/17 [History] buPROPion HCL [Wellbutrin Xl] 300 mg PO DAILY 07/28/17 [History] Past Medical History - Past Health History Medical/Surgical History: Denies Medical/Surgical History HEENT History: Reports: Impaired Vision Cardiovascular History: Reports: None Respiratory History: Reports: Asthma, COPD Gastrointestinal History: Reports: None Other Gastrointestinal History: gastroparesis Genitourinary History: Reports: None CONSOLE MANAGER History: Reports: None Musculoskeletal History: Reports: None Neurological History: Reports: Cerebral Aneurysms Psychiatric History: Reports: None Endocrine/Metabolic History: Reports: None Hematologic History: Reports: None Immunologic History: Reports: None Oncologic (Cancer) History: Reports: None Dermatologic History: Reports: None - Infectious Disease History Infectious Disease History: Reports: Chicken Pox - Past Surgical History Head Surgeries/Procedures: Reports: None HEENT Surgical History: Reports: LASIK Cardiovascular Surgical History: Reports: None Respiratory Surgical History: Reports: None GI Surgical History: Reports: Cholecystectomy Female Surgical History: Reports: Tubal Ligation Endocrine Surgical History: Reports: None Other Neurological Surgeries/Procedures: brain coiles Musculoskeletal Surgical History: Reports: None Oncologic Surgical History: Reports: None Dermatological Surgical History: Reports: None Social & Family History - Family History Family Medical History: No Pertinent Family History - Caffeine Use Caffeine Use: Reports: None ED ROS GENERAL - Review of Systems Review Of Systems: See Below ED EXAM, GENERAL - Physical Exam Exam: See Below Departure - Departure Disposition: Admitted As Inpatient 66 Condition: Fair Clinical Impression: Vomiting, Gastroparesis, Pneumonia, Lactic acidemia - Discharge Information *PRESCRIPTION DRUG MONITORING PROGRAM REVIEWED*: No *COPY OF PRESCRIPTION DRUG MONITORING REPORT IN PATIENT EILEEN: No Instructions: Vomiting, Adult, Gastroparesis Referrals: Rosana Alvarez NP [Primary Care Provider] - Additional Instructions: You were evaluated today on an emergent basis. At this time I do believe there were multiple contributing factors to your vomiting. One would be your gastroparesis. We did treat you with metoclopramide which did seem to help your symptoms. In addition given that you do take Dilaudid essentially daily this could be a component of opioid withdrawal. As discussed I know you have worked outpatient to discuss other options however it may be important to try and wean off Dilaudid over a period of time in discussion with your primary care physician. I do not recommend this currently. Thirdly I do believe that your vomiting was exacerbated by some dehydration given the vomiting. I recommend you continue with p.o. hydration and use your nausea medication as prescribed. If you have any worsening symptoms I recommend you return to the emergency department otherwise follow-up with your primary care physician in 3 to 5 days. [facility] [address] [place] [address] [facility] [address] [place] [id number] The patient is informed of any results of their evaluation and diagnostic workup and all questions are answered. They are given discharge instructions and return precautions. The patient is stable for discharge. The patient states they understand and agree with the plan and that they will return if their symptoms get worse or if they have any new concerns. The following information is given to patients seen in the emergency department who are being discharged to home. This information is to outline your options for follow-up care. We provide all patients seen in our emergency department with a follow-up referral. The need for follow-up, as well as the timing and circumstances, are variable depending upon the specifics of your emergency department visit. If you don't have a primary care physician on staff, we will provide you with a referral. We always advise you to contact your personal physician following an emergency department visit to inform them of the circumstance of the visit and for follow-up with them and/or the need for any referrals to a consulting specialist. The emergency department will also refer you to a specialist when appropriate. This referral assures that you have the opportunity for follow-up care with a specialist. All of these measure are taken in an effort to provide you with optimal care, which includes your follow-up. Under all circumstances we always encourage you to contact your private physician who remains a resource for coordinating your care. When calling for follow-up care, please make the office aware that this follow-up is from your recent emergency room visit. If for any reason you are refused follow-up, please contact the [facility] Emergency Department at and asked to speak to the emergency department charge nurse. <JhRex Kavya - Last Filed: 07/12/21 14:25> Course - Vital Signs Text/Narrative:: 7:45 signed out to me pending a repeat lactic acid. The provider said he was concerned that the previous result could have been a mistake. The lactic acid is still elevated at 4.1. I reevaluated the patient. She states she is feeling better. Patient states that there was some mild shortness of breath a couple of hours ago but otherwise she was not having shortness of breath. There has been no fevers cough or productive sputum. No history of blood clots. No recent travel or injury or cancer or surgery. Family did state that the patient passed out twice over the last day. There is no abdominal pain. On exam the lungs are clear to auscultation without rales or wheezing. Abdomen is soft and nontender. Patient states that she did take some antibiotics for urinary tract infections which she often gets but she never has symptoms in this regard. Patient does not have flank tenderness on exam. At this time patient has received over 30 cc/kg of IV fluids and antibiotics will be given. Cultures have been drawn and we will pursue chest x-ray and abdominal pelvic CT looking for sources of infection. It was noted that the patient is oxygen saturation when I evaluated her was 92% with a good waveform. She is not tachypneic. CT will be added also to rule out PE and Covid testing. Patient states she has a red rash to IV contrast that she has had it in the past without problems of she is pretreated 10 minutes prior with Benadryl. Patient is also related that she has had brain aneurysm in the past for which she has had CT scanning in which his reaction occurred. Since the patient did hit her head has a history of aneurysm has been vomiting and has a history of a brain aneurysm head CT will be done as well Patient CT scan showed evidence of a possible pneumonia. Antibiotics have been broadened. She states she has a history of asthma and COPD. I do not hear wheeze but there could be a component of tightness or poor air exchange so steroids and a breathing treatment will be given. Her abdomen remains soft and nontender. Remainder the imaging studies are unremarkable. I have reviewed the lab test I do see 1 systolic blood pressure recording of 89 but for the most part the patient has been quite stable throughout her ED course. This is not when I repeated blood pressure measurement and the patient looks well is doing fine and vital signs prior to admission are normal and the patient appears well Last Recorded V/S: Last Vital Signs Temp 36.3 C 07/12/21 07:04 Pulse 81 07/12/21 14:06 Resp 15 07/12/21 10:51 BP 113/63 07/12/21 14:06 Pulse Ox 91 L 07/12/21 14:06 - Orders/Labs/Meds Orders: Active Orders 24 hr Category Date Time Status Blood Glucose Check, Bedside [RC] ONETIME Care 07/12/21 03:45 Active CULTURE BLOOD [BC] Stat Lab 07/12/21 06:55 Received CULTURE BLOOD [BC] Stat Lab 07/12/21 07:00 Received Azithromycin [Zithromax] 500 mg Med 07/12/21 14:15 Active Sodium Chloride 0.9% [Normal Saline AdvBag] 250 ml IV DAILY Lactated Ringers [Ringers, Lactated] 1,000 ml Med 07/12/21 04:00 Active IV ASDIRECTED Lactated Ringers [Ringers, Lactated] 1,000 ml Med 07/12/21 04:30 Active IV ASDIRECTED Lactated Ringers [Ringers, Lactated] 1,000 ml Med 07/12/21 04:45 Active IV ASDIRECTED Lactated Ringers [Ringers, Lactated] 1,000 ml Med 07/12/21 06:45 Active IV ASDIRECTED diphenhydrAMINE [Benadryl] Med 07/12/21 08:00 Active 25 mg IVPUSH BEDTIME PRN Blood Culture x2 Reflex Set [OM.PC] Stat Oth 07/12/21 06:43 Ordered Medication Orders Diphenhydramine HCl (Diphenhydramine 50 Mg/Ml Sdv) 25 mg IVPUSH BEDTIME PRN PRN Reason: Allergies Last Admin: 07/12/21 08:08 Dose: 25 mg Documented by: MARCOS Lactated Ringer's (Ringers, Lactated) 1,000 mls @ 999 mls/hr IV ASDIRECTED SHAWN Last Admin: 07/12/21 04:01 Dose: 999 mls/hr Documented by: MAGGIE Lactated Ringer's (Ringers, Lactated) 1,000 mls @ 999 mls/hr IV ASDIRECTED SHAWN Last Admin: 07/12/21 05:00 Dose: 999 mls/hr Documented by: EDILMAILAC Lactated Ringer's (Ringers, Lactated) 1,000 mls @ 178 mls/hr IV ASDIRECTED SHAWN Last Admin: 07/12/21 05:20 Dose: 178 mls/hr Documented by: LEWILAC Lactated Ringer's (Ringers, Lactated) 1,000 mls @ 125 mls/hr IV ASDIRECTED SHAWN Last Admin: 07/12/21 06:55 Dose: 125 mls/hr Documented by: EDILMAILAC Azithromycin 500 mg/ Sodium (Chloride) 250 mls @ 250 mls/hr IV DAILY SHAWN Labs: Laboratory Tests 07/12/21 07/12/21 07/12/21 Range/Units 03:47 03:47 03:47 WBC 17.25 H (4.0-11.0) K/uL RBC 5.05 (4.30-5.90) M/uL Hgb 15.8 (12.0-16.0) g/dL Hct 46.4 H (36.0-46.0) % MCV 91.9 (80.0-98.0) fL MCH 31.3 (27.0-32.0) pg MCHC 34.1 (31.0-37.0) g/dL RDW Std Deviation 45.6 (28.0-62.0) fl RDW Coeff of Erlin 14 (11.0-15.0) % Plt Count 454 H (150-400) K/uL MPV 8.90 (7.40-12.00) fL Neut % (Auto) 90.3 H (48.0-80.0) % Lymph % (Auto) 6.6 L (16.0-40.0) % Rains % (Auto) 2.7 (0.0-15.0) % Eos % (Auto) 0.2 (0.0-7.0) % Baso % (Auto) 0.2 (0.0-1.5) % Neut # (Auto) 15.6 H (1.4-5.7) K/uL Lymph # (Auto) 1.1 (0.6-2.4) K/uL Rains # (Auto) 0.5 (0.0-0.8) K/uL Eos # (Auto) 0.0 (0.0-0.7) K/uL Baso # (Auto) 0.0 (0.0-0.1) K/uL Nucleated RBC % 0.0 /100WBC Nucleated RBCs # 0 K/uL INR 1.04 Sodium 140 (136-145) mmol/L Potassium 4.6 (3.5-5.1) mmol/L Chloride 101 (98-107) mmol/L Carbon Dioxide 24.1 (21.0-32.0) mmol/L BUN 18 (7.0-18.0) mg/dL Creatinine 1.2 H (0.6-1.0) mg/dL Est Cr Clr Drug Dosing TNP Estimated GFR (MDRD) 47.4 ml/min Glucose 200 H (74-106) mg/dL POC Glucose (70-99) mg/dL Lactic Acid (0.4-2.0) mmol/L Calcium 9.1 (8.5-10.1) mg/dL Total Bilirubin 0.4 (0.2-1.0) mg/dL AST 24 (15-37) IU/L ALT 30 (14-63) IU/L Alkaline Phosphatase 138 H (46-116) U/L Troponin I (0.000-0.056) ng/mL Total Protein 9.0 H (6.4-8.2) g/dL Albumin 4.5 (3.4-5.0) g/dL Globulin 4.5 H (2.6-4.0) g/dL Albumin/Globulin Ratio 1.0 (0.9-1.6) Lipase 100 (73-393) U/L HCG, Qual (NEG) Urine Color Urine Appearance Urine pH (5.0-8.0) Ur Specific Delphi (1.001-1.035) Urine Protein (NEGATIVE) mg/dL Urine Glucose (UA) (NEGATIVE) mg/dL Urine Ketones (NEGATIVE) mg/dL Urine Occult Blood (NEGATIVE) Urine Nitrite (NEGATIVE) Urine Bilirubin (NEGATIVE) Urine Urobilinogen (<2.0) EU/dL Ur Leukocyte Esterase (NEGATIVE) SARS-CoV-2 RNA (ELIEZER) (NEGATIVE) 07/12/21 07/12/21 07/12/21 Range/Units 03:47 03:47 03:54 WBC (4.0-11.0) K/uL RBC (4.30-5.90) M/uL Hgb (12.0-16.0) g/dL Hct (36.0-46.0) % MCV (80.0-98.0) fL MCH (27.0-32.0) pg MCHC (31.0-37.0) g/dL RDW Std Deviation (28.0-62.0) fl RDW Coeff of Erlin (11.0-15.0) % Plt Count (150-400) K/uL MPV (7.40-12.00) fL Neut % (Auto) (48.0-80.0) % Lymph % (Auto) (16.0-40.0) % Rains % (Auto) (0.0-15.0) % Eos % (Auto) (0.0-7.0) % Baso % (Auto) (0.0-1.5) % Neut # (Auto) (1.4-5.7) K/uL Lymph # (Auto) (0.6-2.4) K/uL Rains # (Auto) (0.0-0.8) K/uL Eos # (Auto) (0.0-0.7) K/uL Baso # (Auto) (0.0-0.1) K/uL Nucleated RBC % /100WBC Nucleated RBCs # K/uL INR Sodium (136-145) mmol/L Potassium (3.5-5.1) mmol/L Chloride (98-107) mmol/L Carbon Dioxide (21.0-32.0) mmol/L BUN (7.0-18.0) mg/dL Creatinine (0.6-1.0) mg/dL Est Cr Clr Drug Dosing Estimated GFR (MDRD) ml/min Glucose (74-106) mg/dL POC Glucose (70-99) mg/dL Lactic Acid 4.2 H* (0.4-2.0) mmol/L Calcium (8.5-10.1) mg/dL Total Bilirubin (0.2-1.0) mg/dL AST (15-37) IU/L ALT (14-63) IU/L Alkaline Phosphatase (46-116) U/L Troponin I < 0.050 (0.000-0.056) ng/mL Total Protein (6.4-8.2) g/dL Albumin (3.4-5.0) g/dL Globulin (2.6-4.0) g/dL Albumin/Globulin Ratio (0.9-1.6) Lipase (73-393) U/L HCG, Qual NEGATIVE (NEG) Urine Color Urine Appearance Urine pH (5.0-8.0) Ur Specific Delphi (1.001-1.035) Urine Protein (NEGATIVE) mg/dL Urine Glucose (UA) (NEGATIVE) mg/dL Urine Ketones (NEGATIVE) mg/dL Urine Occult Blood (NEGATIVE) Urine Nitrite (NEGATIVE) Urine Bilirubin (NEGATIVE) Urine Urobilinogen (<2.0) EU/dL Ur Leukocyte Esterase (NEGATIVE) SARS-CoV-2 RNA (ELIEZER) (NEGATIVE) 07/12/21 07/12/21 07/12/21 Range/Units 05:59 06:10 06:35 WBC (4.0-11.0) K/uL RBC (4.30-5.90) M/uL Hgb (12.0-16.0) g/dL Hct (36.0-46.0) % MCV (80.0-98.0) fL MCH (27.0-32.0) pg MCHC (31.0-37.0) g/dL RDW Std Deviation (28.0-62.0) fl RDW Coeff of Erlin (11.0-15.0) % Plt Count (150-400) K/uL MPV (7.40-12.00) fL Neut % (Auto) (48.0-80.0) % Lymph % (Auto) (16.0-40.0) % Rains % (Auto) (0.0-15.0) % Eos % (Auto) (0.0-7.0) % Baso % (Auto) (0.0-1.5) % Neut # (Auto) (1.4-5.7) K/uL Lymph # (Auto) (0.6-2.4) K/uL Rains # (Auto) (0.0-0.8) K/uL Eos # (Auto) (0.0-0.7) K/uL Baso # (Auto) (0.0-0.1) K/uL Nucleated RBC % /100WBC Nucleated RBCs # K/uL INR Sodium (136-145) mmol/L Potassium (3.5-5.1) mmol/L Chloride (98-107) mmol/L Carbon Dioxide (21.0-32.0) mmol/L BUN (7.0-18.0) mg/dL Creatinine (0.6-1.0) mg/dL Est Cr Clr Drug Dosing Estimated GFR (MDRD) ml/min Glucose (74-106) mg/dL POC Glucose 115 H (70-99) mg/dL Lactic Acid 4.2 H* (0.4-2.0) mmol/L Calcium (8.5-10.1) mg/dL Total Bilirubin (0.2-1.0) mg/dL AST (15-37) IU/L ALT (14-63) IU/L Alkaline Phosphatase (46-116) U/L Troponin I (0.000-0.056) ng/mL Total Protein (6.4-8.2) g/dL Albumin (3.4-5.0) g/dL Globulin (2.6-4.0) g/dL Albumin/Globulin Ratio (0.9-1.6) Lipase (73-393) U/L HCG, Qual (NEG) Urine Color YELLOW Urine Appearance CLEAR Urine pH 7.5 (5.0-8.0) Ur Specific Delphi 1.015 (1.001-1.035) Urine Protein NEGATIVE (NEGATIVE) mg/dL Urine Glucose (UA) NEGATIVE (NEGATIVE) mg/dL Urine Ketones TRACE H (NEGATIVE) mg/dL Urine Occult Blood NEGATIVE (NEGATIVE) Urine Nitrite NEGATIVE (NEGATIVE) Urine Bilirubin NEGATIVE (NEGATIVE) Urine Urobilinogen 0.2 (<2.0) EU/dL Ur Leukocyte Esterase NEGATIVE (NEGATIVE) SARS-CoV-2 RNA (ELIEZER) (NEGATIVE) 07/12/21 07/12/21 Range/Units 06:55 08:01 WBC (4.0-11.0) K/uL RBC (4.30-5.90) M/uL Hgb (12.0-16.0) g/dL Hct (36.0-46.0) % MCV (80.0-98.0) fL MCH (27.0-32.0) pg MCHC (31.0-37.0) g/dL RDW Std Deviation (28.0-62.0) fl RDW Coeff of Erlin (11.0-15.0) % Plt Count (150-400) K/uL MPV (7.40-12.00) fL Neut % (Auto) (48.0-80.0) % Lymph % (Auto) (16.0-40.0) % Rains % (Auto) (0.0-15.0) % Eos % (Auto) (0.0-7.0) % Baso % (Auto) (0.0-1.5) % Neut # (Auto) (1.4-5.7) K/uL Lymph # (Auto) (0.6-2.4) K/uL Rains # (Auto) (0.0-0.8) K/uL Eos # (Auto) (0.0-0.7) K/uL Baso # (Auto) (0.0-0.1) K/uL Nucleated RBC % /100WBC Nucleated RBCs # K/uL INR Sodium (136-145) mmol/L Potassium (3.5-5.1) mmol/L Chloride (98-107) mmol/L Carbon Dioxide (21.0-32.0) mmol/L BUN (7.0-18.0) mg/dL Creatinine (0.6-1.0) mg/dL Est Cr Clr Drug Dosing Estimated GFR (MDRD) ml/min Glucose (74-106) mg/dL POC Glucose (70-99) mg/dL Lactic Acid 4.1 H* (0.4-2.0) mmol/L Calcium (8.5-10.1) mg/dL Total Bilirubin (0.2-1.0) mg/dL AST (15-37) IU/L ALT (14-63) IU/L Alkaline Phosphatase (46-116) U/L Troponin I (0.000-0.056) ng/mL Total Protein (6.4-8.2) g/dL Albumin (3.4-5.0) g/dL Globulin (2.6-4.0) g/dL Albumin/Globulin Ratio (0.9-1.6) Lipase (73-393) U/L HCG, Qual (NEG) Urine Color Urine Appearance Urine pH (5.0-8.0) Ur Specific [place] (1.001-1.035) Urine Protein (NEGATIVE) mg/dL Urine Glucose (UA) (NEGATIVE) mg/dL Urine Ketones (NEGATIVE) mg/dL Urine Occult Blood (NEGATIVE) Urine Nitrite (NEGATIVE) Urine Bilirubin (NEGATIVE) Urine Urobilinogen (<2.0) EU/dL Ur Leukocyte Esterase (NEGATIVE) SARS-CoV-2 RNA (ELIEZER) NEGATIVE (NEGATIVE) Meds: Medications Generic Name Dose Route Start Last Admin Trade Name Freq PRN Reason Stop Dose Admin Diphenhydramine HCl 25 mg 07/12/21 08:00 07/12/21 08:08 Diphenhydramine 50 Mg/Ml Sdv IVPUSH 25 mg BEDTIME PRN Administration Allergies Lactated Ringer's 1,000 mls @ 999 mls/hr 07/12/21 04:00 07/12/21 04:01 Ringers, Lactated IV 999 mls/hr ASDIRECTED SHAWN Administration Lactated Ringer's 1,000 mls @ 999 mls/hr 07/12/21 04:30 07/12/21 05:00 Ringers, Lactated IV 999 mls/hr ASDIRECTED SHAWN Administration Lactated Ringer's 1,000 mls @ 178 mls/hr 07/12/21 04:45 07/12/21 05:20 Ringers, Lactated IV 178 mls/hr ASDIRECTED SHAWN Administration Lactated Ringer's 1,000 mls @ 125 mls/hr 07/12/21 06:45 07/12/21 06:55 Ringers, Lactated IV 125 mls/hr ASDIRECTED SHAWN Administration Azithromycin 500 mg/ Sodium 250 mls @ 250 mls/hr 07/12/21 14:15 Chloride IV DAILY SHAWN Discontinued Medications Generic Name Dose Route Start Last Admin Trade Name Freq PRN Reason Stop Dose Admin Alum [place]/Mag [place]/Simeth XS 0 ml 07/12/21 05:16 07/12/21 05:34 15 ml/ Lidocaine HCl 5 ml PO 07/12/21 05:17 45 each ONETIME ONE Administration Diphenhydramine HCl 25 mg 07/12/21 03:44 Diphenhydramine 50 Mg/Ml Sdv IVPUSH 07/12/21 03:45 ONETIME ONE Diphenhydramine HCl 25 mg 07/12/21 04:22 07/12/21 04:35 Diphenhydramine 50 Mg/Ml Sdv IVPUSH 07/12/21 04:23 25 mg ONETIME ONE Administration Diphenhydramine HCl 25 mg 07/12/21 11:18 07/12/21 11:23 Diphenhydramine 50 Mg/Ml Sdv IVPUSH 07/12/21 11:19 25 mg BEDTIME ONE Administration Haloperidol Lactate 5 mg 07/12/21 03:44 Haloperidol Lactate 5 Mg/Ml Sdv IM 07/12/21 03:45 ONETIME ONE Haloperidol Lactate 2.5 mg 07/12/21 04:22 07/12/21 04:37 Haloperidol Lactate 5 Mg/Ml Sdv IM 07/12/21 04:23 2.5 mg ONETIME ONE Administration Hydromorphone HCl 1 mg 07/12/21 03:49 07/12/21 04:03 Hydromorphone 1 Mg/Ml Syringe IVPUSH 07/12/21 03:50 1 mg ONETIME ONE Administration Hydromorphone HCl 1 mg 07/12/21 04:22 07/12/21 04:32 Hydromorphone 1 Mg/Ml Syringe IVPUSH 07/12/21 04:23 1 mg ONETIME ONE Administration Pantoprazole Sodium 80 mg/ 20 mls @ 420 mls/hr 07/12/21 05:17 07/12/21 05:35 Sodium Chloride IVPUSH 07/12/21 05:19 420 mls/hr ONETIME ONE Administration Piperacillin Sod/Tazobactam 100 mls @ 100 mls/hr 07/12/21 07:39 07/12/21 08:46 Sod 4.5 gm/ Sodium Chloride IV 07/12/21 08:38 100 mls/hr ONETIME ONE Administration Iopamidol 100 ml 07/12/21 13:22 07/12/21 13:23 Iopamidol 755 Mg/Ml 500 Ml Multipack Bottle IVPUSH 07/12/21 13:23 100 ml ONETIME STA Administration Methylprednisolone Sodium Succinate 40 mg 07/12/21 08:16 07/12/21 08:41 Methylprednisolone Sodium Succinate 40 Mg/1 Ml Sdv IVPUSH 07/12/21 08:17 40 mg ONETIME ONE Administration Metoclopramide HCl 10 mg 07/12/21 03:45 07/12/21 04:04 Metoclopramide 10 Mg/2 Ml Sdv IVPUSH 07/12/21 03:46 10 mg ONETIME ONE Administration Morphine Sulfate 4 mg 07/12/21 11:20 07/12/21 11:31 Morphine 4 Mg/Ml Vial IVPUSH 07/12/21 11:21 4 mg ONETIME ONE Administration Ondansetron HCl 4 mg 07/12/21 03:50 07/12/21 04:01 Ondansetron 4 Mg/2 Ml Sdv IVPUSH 07/12/21 03:51 4 mg ONETIME ONE Administration Ondansetron HCl 4 mg 07/12/21 11:20 07/12/21 11:31 Ondansetron 4 Mg/2 Ml Sdv IVPUSH 07/12/21 11:21 4 mg ONETIME ONE Administration Sumatriptan Succinate 6 mg 07/12/21 09:14 Sumatriptan 6 Mg/0.5 Ml Sdv SUBCUT 07/12/21 09:15 ONETIME ONE Sumatriptan Succinate 100 mg 07/12/21 09:16 07/12/21 09:34 Sumatriptan 50 Mg Tab PO 07/12/21 09:17 100 mg ONETIME ONE Administration Departure - Departure Time of Disposition: 14:24 Condition: Good Sepsis Event Note (ED) - Focused Exam Vital Signs: Vital Signs Temp Pulse Resp BP Pulse Ox 07/12/21 14:06 81 113/63 91 L 07/12/21 13:06 79 110/56 L 93 L 07/12/21 12:35 92 105/60 93 L 07/12/21 11:35 87 120/79 93 L 07/12/21 10:57 64 89/58 L 93 L 07/12/21 10:51 82 15 115/69 93 L 07/12/21 10:05 78 115/69 94 L 07/12/21 09:05 83 109/70 94 L 07/12/21 07:36 85 94/57 L 92 L 07/12/21 07:04 36.3 C 89 95/59 L 94 L 07/12/21 06:03 93 18 107/69 93 L 07/12/21 04:00 36.6 C 90 18 141/90 H 96 - My Orders Last 24 Hours: My Active Orders 07/12/21 08:00 diphenhydrAMINE [Benadryl] 25 mg IVPUSH BEDTIME PRN 07/12/21 14:15 Azithromycin [Zithromax] 500 mg Sodium Chloride 0.9% [Normal Saline AdvBag] 250 ml IV DAILY - Assessment/Plan Last 24 Hours: My Active Orders 07/12/21 08:00 diphenhydrAMINE [Benadryl] 25 mg IVPUSH BEDTIME PRN 07/12/21 14:15 Azithromycin [Zithromax] 500 mg Sodium Chloride 0.9% [Normal Saline AdvBag] 250 ml IV DAILY
[2021-07-12 04:12] LABS: BLOOD UREA NITROGEN,BUN 18 mg/dL (7.0-18.0); CARBON DIOXIDE,CO2 24.1 mmol/L (21.0-32.0); CHLORIDE,CL 101 mmol/L (98-107); GLUCOSE RANDOM 200 mg/dL (74-106); LIPASE 100 U/L (73-393); POTASSIUM,K 4.6 mmol/L (3.5-5.1); SODIUM,NA 140 mmol/L (136-145)
--- NOTE | 2021-07-12 04:43 | PCM.EKG ---
#1 Interpretation EKG Date: 07/12/21 Time: 04:06 Rhythm: NSR Rate (Beats/Min): 90 [place]: Normal P-Wave: Present QRS: Normal ST-T: Normal QT: Normal Comparison: No Change (12/08/19) EKG Interpretation Comments: Sinus Rhythm
[2021-07-12] MEDS ORDERED: Alum Hydro/Mag Hydro/Simeth XS 15 ML, Lidocaine 2% 5 ML PO ONE ×2 (05:16)
[2021-07-12] MEDS ORDERED: Pantoprazole 80 MG in Sodium Chloride 0.9% 20 ML IVPUSH ONE (05:17)
[2021-07-12] MEDS: Lactated Ringers 1,000 ML IV SCH ×2 (06:55→18:58)
[2021-07-12] MEDS ORDERED: Piperacillin/Tazobactam 4.5 GM in Sodium Chloride 0.9% 100 ML IV ONE (07:39)
[2021-07-12] MEDS ORDERED: diphenhydrAMINE 50 MG/ML SDV IVPUSH PRN (08:00)
--- NOTE | 2021-07-12 08:08 | CR ---
Indication: Chest Pain Comparison: Single view chest October 15, 2020 Technique: Single AP view chest Findings: There is hyperinflation and chronic interstitial change. There is no focal consolidation, effusion, or pneumothorax. The cardiomediastinal silhouette is within normal limits. The bony thorax is grossly intact. Impression: No acute cardiopulmonary abnormality. Dictated by Bogdan Avery MD @ 07/12/2021 8:06:42 AM (Electronically Signed)
[2021-07-12] MEDS ORDERED: methylPREDNISolone Sodium Succinate 40 MG/1 ML SDV IVPUSH ONE (08:16)
[2021-07-12] MEDS ORDERED: SUMAtriptan 6 MG/0.5 ML SDV SUBCUT ONE (09:14)
[2021-07-12] MEDS ORDERED: SUMAtriptan 50 MG Tab PO ONE (09:16)
--- NOTE | 2021-07-12 09:40 | CT ---
Indication: Head injury, syncope Technique: Volumetric multidetector CT images of the head were obtained without the administration of low osmolar intravenous contrast. Comparison: None available Findings: There is no intra-axial or extra-axial fluid collection. There is no mass effect or midline shift. The ventricles and sulci are grossly normal in size and position for age. 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 The visualized brain parenchyma is otherwise preserved in attenuation and calvo-white differentiation. The orbits and their contents are grossly within normal limits. The bony calvarium is grossly intact. There is mild to moderate polypoid mucosal thickening. There is fluid within the right mastoid air cells. 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 Please note that all CT scans at this facility use dose modulation, iterative reconstruction, and/or weight-based dosing when appropriate to reduce radiation dose to as low as reasonably achievable. Dictated by Bogdan Avery MD @ 07/12/2021 9:39:46 AM (Electronically Signed)
[2021-07-12] MEDS ORDERED: Morphine 4 MG/ML VIAL IVPUSH ONE (11:20)
[2021-07-12] MEDS ORDERED: Iopamidol 755 MG/ML 500 ML Multipack Bottle IVPUSH STA (13:22)
--- NOTE | 2021-07-12 13:57 | CT ---
Indication: Hypoxia pain, question pulmonary embolus. Technique: Volumetric multidetector CT images of the chest were obtained after the administration of IV contrast. 100 cc Isovue 370 low osmolar intravenous contrast Comparison: None available. Findings: The thoracic inlet and thyroid gland are unremarkable. The thoracic aorta is nonaneurysmal. There is no central filling defect to suggest pulmonary embolism. There are reactive appearing mediastinal and hilar lymph nodes. There is no axillary adenopathy. There is mild central bronchial thickening. There is mild interstitial prominence with dependent basilar atelectasis and parenchymal scarring with mild interlobular septal thickening which may represent mild pulmonary vascular congestion. There is minimal airspace opacity in the superior peripheral right lower lobe. There is minimal fatty infiltration of the inferior left major fissure. There is no definite suspicious pulmonary nodule. The partially visualized upper abdomen is grossly unremarkable. There is a small hiatal hernia. The thoracic vertebral body heights are grossly maintained with mild multi-level degenerative disc disease. There is no significant spondylolisthesis or displaced fracture. Impression: Mild interstitial prominence with basilar atelectasis and parenchymal scar with mild interlobular septal thickening which may represent a component of pulmonary vascular congestion. Minimal linear airspace opacities seen in the superior and peripheral aspect of the right lower lobe which may represent minimal infectious or inflammatory changes. There are mildly reactive appearing mediastinal lymph nodes. No evidence of pulmonary embolism. Please note that all CT scans at this facility use dose modulation, iterative reconstruction, and/or weight-based dosing when appropriate to reduce radiation dose to as low as reasonably achievable. Dictated by Bogdan Avery MD @ 07/12/2021 1:55:26 PM (Electronically Signed)
--- NOTE | 2021-07-12 14:03 | CT ---
Indication: Abdominal pain Technique: Volumetric multidetector CT images of the abdomen and pelvis were obtained after the administration of intravenous contrast. 100 cc Isovue 370 low osmolar intravenous contrast Comparison: None available. Findings: There is bibasilar atelectasis and parenchymal scarring. The liver is normal in attenuation without intrahepatic biliary ductal dilatation. The portal vein is patent. Gallbladder is surgically absent. There is no significant common biliary ductal dilatation or abrupt cut off. The spleen is normal in enhancement and size. There is a small hiatal hernia. There is mild thickening of the gastric antrum commensurate with chronic gastritis changes. The pancreas is normal in enhancement without significant atrophy. The adrenal glands are unremarkable. There is moderate lobular appearance of the bilateral kidneys likely representing persistent lobulation and/or sequela of prior renal parenchymal injury. Otherwise, preserved corticomedullary differentiation without obstructive calculus. Moderate to severe stool seen throughout the colon with minimal distal colonic diverticulosis. No evidence of diverticulitis. Moderate redundant appearance of the transverse colon which demonstrates a somewhat inferior position within the low midline pelvis. The appendix is unremarkable. There is no significant mesenteric, retroperitoneal, or pelvic sidewall lymph nodes. The aorta is nonaneurysmal. There is no significant atherosclerotic disease appreciated. The solid pelvic viscera are grossly unremarkable. There is no free fluid or free air. The anterior abdominal wall is intact without significant hernias. The lumbar vertebral body heights are grossly maintained with mild degenerative disc disease. There is mild to moderate facet arthrosis. Impression: Mild chronic thickening of the gastric antrum commensurate with chronic gastritis changes. Small hiatal hernia. Prior cholecystectomy. Moderate to severe stool seen throughout the colon with minimal distal colonic diverticulosis without evidence of diverticulitis. Otherwise, no definite additional acute intra-abdominal abnormality is appreciated. Please note that all CT scans at this facility use dose modulation, iterative reconstruction, and/or weight-based dosing when appropriate to reduce radiation dose to as low as reasonably achievable. Dictated by Bogdan Avery MD @ 07/12/2021 2:02:50 PM (Electronically Signed)
[2021-07-12] MEDS ORDERED: methylPREDNISolone Sodium Succinate 2 GM Vial IV ONE (14:23)
[2021-07-12] MEDS ORDERED: Albuterol/Ipratropium 3.0-0.5 MG/3 ML Neb Soln NEB ONE (14:24)
[2021-07-12] MEDS: Azithromycin 500 MG in Sodium Chloride 0.9% 250 ML IV SCH (14:34)
[2021-07-12] MEDS ORDERED: Morphine 2 MG/ML SYRINGE IVPUSH ONE (15:38)
--- NOTE | 2021-07-12 15:53 | PCM.HP.2 ---
H&P History of Present Illness - General Date of Service: 07/12/21 Admit Problem/Dx: Admission Diagnosis/Problem Admission Diagnosis/Problem Pneumonia - History of Present Illness Initial Comments - Free Text/Narative: 51 yo female with pmh of gastroparesis who presents to the ER with complaints of nausea and vomiting for past day. Patient reports suffering from gastroparesis for many years. She reports her gastroparesis is disabling and she is unable to due much besides lay in bed. She has been through up every hour for the past day. She denies any fevers, chest pain, shortness of breath or cough. Abdomen Pain Score (Numeric/FACES): 9 - Related Data Allergies/Adverse Reactions: Allergies Allergy/AdvReac Type Severity Reaction Status Date / Time chlorpromazine Allergy Seizure Verified 07/12/21 04:20 doxycycline Allergy Cannot Verified 07/12/21 04:20 Remember iopamidol [From [id number]] Allergy Burning Verified 07/12/21 04:20 olanzapine [From Zyprexa] Allergy Hyperactivi Verified 07/12/21 04:20 ty promethazine HCl Allergy Hallucinati Verified 07/12/21 04:20 [From Phenergan] ons Home Medications: Home Meds Fluticasone/Salmeterol [Advair 250-50] 1 puff INH BID 12/09/14 [History] Omeprazole 1 tab PO DAILY 12/09/14 [History] Zolpidem [Ambien] 10 mg PO BEDTIME 12/09/14 [History] Cholecalciferol (Vitamin D3) [Vitamin D3] 5,000 unit PO DAILY 08/02/15 [History] Cyanocobalamin (Vitamin B-12) [Vitamin B-12] 1,000 mcg PO DAILY 08/02/15 [History] Levothyroxine [Synthroid] 125 mcg PO ACBREAKFAST 08/02/15 [History] SUMAtriptan 100 mg PO .EVERY 2 HOURS PRN MDD 200 MG 08/02/15 [History] Trimethobenzamide [Tigan] 300 mg PO TID PRN 08/02/15 [History] Vitamin A 8,000 unit PO DAILY 08/02/15 [History] Vitamin E 400 unit PO DAILY 08/02/15 [History] valACYclovir [Valtrex] 500 mg PO BID PRN MDD Herpes 08/02/15 [History] Albuterol [Ventolin HFA] 2 inh IH Q6H PRN 07/28/17 [History] Ondansetron [Zofran ODT] 8 mg SL Q8H PRN 07/28/17 [History] Polyethylene Glycol 3350 [MiraLAX] 17 gm PO DAILY PRN 07/28/17 [History] Prochlorperazine [Compro] 25 mg RC TID 07/28/17 [History] HYDROmorphone [Dilaudid] 2 mg PO Q6H PRN 07/12/21 [History] Metoclopramide HCl [Reglan] 20 mg PO TID 07/12/21 [History] atorvaSTATin [Lipitor] 20 mg PO QAM 07/12/21 [History] estradioL [Estradiol (Once Weekly)] 1 each TD WEEKLY 07/12/21 [History] Past Medical History - Past Health History Medical/Surgical History: Denies Medical/Surgical History HEENT History: Reports: Impaired Vision Cardiovascular History: Reports: None Respiratory History: Reports: Asthma, COPD Gastrointestinal History: Reports: None Other Gastrointestinal History: gastroparesis Genitourinary History: Reports: None [employer] History: Reports: None Musculoskeletal History: Reports: None Neurological History: Reports: Cerebral Aneurysms Psychiatric History: Reports: None Endocrine/Metabolic History: Reports: None Hematologic History: Reports: None Immunologic History: Reports: None Oncologic (Cancer) History: Reports: None Dermatologic History: Reports: None - Infectious Disease History Infectious Disease History: Reports: Chicken Pox - Past Surgical History Head Surgeries/Procedures: Reports: None HEENT Surgical History: Reports: LASIK Cardiovascular Surgical History: Reports: None Respiratory Surgical History: Reports: None GI Surgical History: Reports: Cholecystectomy Female Surgical History: Reports: Tubal Ligation Endocrine Surgical History: Reports: None Other Neurological Surgeries/Procedures: brain coiles Musculoskeletal Surgical History: Reports: None Oncologic Surgical History: Reports: None Dermatological Surgical History: Reports: None Social & Family History - Family History Family Medical History: No Pertinent Family History - Tobacco Use Tobacco Use Status *Q: Never Tobacco User - Caffeine Use Caffeine Use: Reports: None - Recreational Drug Use Recreational Drug Use: No H&P Review of Systems - Review of Systems: Review Of Systems: Comprehensive ROS is negative, except as noted in HPI. Exam - Exam Exam: See Below - Vital Signs Vital Signs: Last Vital Signs Temp 36.3 C 07/12/21 07:04 Pulse 78 07/12/21 15:33 Resp 15 07/12/21 14:40 BP 117/85 07/12/21 15:33 Pulse Ox 95 07/12/21 15:33 Weight: 72.575 kg - Exam General: Alert, Oriented HEENT: Mucosa Moist & [place] Neck: Supple Lungs: Clear to Auscultation, Normal Respiratory Effort Cardiovascular: Regular Rate, Regular Rhythm GI/Abdominal Exam: Normal Bowel Sounds, Soft, Non-Tender Extremities: Normal Inspection, Normal Range of Motion, Non-Tender Skin: Warm, Dry, Intact Neurological: No: Focal Deficit - Patient Data Lab Results Last 24 hrs: Laboratory Results - last 24 hr 07/12/21 07/12/21 07/12/21 Range/Units 03:47 03:47 03:47 WBC 17.25 H (4.0-11.0) K/uL RBC 5.05 (4.30-5.90) M/uL Hgb 15.8 (12.0-16.0) g/dL Hct 46.4 H (36.0-46.0) % MCV 91.9 (80.0-98.0) fL MCH 31.3 (27.0-32.0) pg MCHC 34.1 (31.0-37.0) g/dL RDW Std Deviation 45.6 (28.0-62.0) fl RDW Coeff of Erlin 14 (11.0-15.0) % Plt Count 454 H (150-400) K/uL MPV 8.90 (7.40-12.00) fL Neut % (Auto) 90.3 H (48.0-80.0) % Lymph % (Auto) 6.6 L (16.0-40.0) % Morton % (Auto) 2.7 (0.0-15.0) % Eos % (Auto) 0.2 (0.0-7.0) % Baso % (Auto) 0.2 (0.0-1.5) % Neut # (Auto) 15.6 H (1.4-5.7) K/uL Lymph # (Auto) 1.1 (0.6-2.4) K/uL Morton # (Auto) 0.5 (0.0-0.8) K/uL Eos # (Auto) 0.0 (0.0-0.7) K/uL Baso # (Auto) 0.0 (0.0-0.1) K/uL Nucleated RBC % 0.0 /100WBC Nucleated RBCs # 0 K/uL INR 1.04 Sodium 140 (136-145) mmol/L Potassium 4.6 (3.5-5.1) mmol/L Chloride 101 (98-107) mmol/L Carbon Dioxide 24.1 (21.0-32.0) mmol/L BUN 18 (7.0-18.0) mg/dL Creatinine 1.2 H (0.6-1.0) mg/dL Est Cr Clr Drug Dosing TNP Estimated GFR (MDRD) 47.4 ml/min Glucose 200 H (74-106) mg/dL POC Glucose (70-99) mg/dL Lactic Acid (0.4-2.0) mmol/L Calcium 9.1 (8.5-10.1) mg/dL Total Bilirubin 0.4 (0.2-1.0) mg/dL AST 24 (15-37) IU/L ALT 30 (14-63) IU/L Alkaline Phosphatase 138 H (46-116) U/L Troponin I (0.000-0.056) ng/mL Total Protein 9.0 H (6.4-8.2) g/dL Albumin 4.5 (3.4-5.0) g/dL Globulin 4.5 H (2.6-4.0) g/dL Albumin/Globulin Ratio 1.0 (0.9-1.6) Lipase 100 (73-393) U/L HCG, Qual (NEG) Urine Color Urine Appearance Urine pH (5.0-8.0) Ur Specific [place] (1.001-1.035) Urine Protein (NEGATIVE) mg/dL Urine Glucose (UA) (NEGATIVE) mg/dL Urine Ketones (NEGATIVE) mg/dL Urine Occult Blood (NEGATIVE) Urine Nitrite (NEGATIVE) Urine Bilirubin (NEGATIVE) Urine Urobilinogen (<2.0) EU/dL Ur Leukocyte Esterase (NEGATIVE) SARS-CoV-2 RNA (ELIEZER) (NEGATIVE) 07/12/21 07/12/21 07/12/21 Range/Units 03:47 03:47 03:54 WBC (4.0-11.0) K/uL RBC (4.30-5.90) M/uL Hgb (12.0-16.0) g/dL Hct (36.0-46.0) % MCV (80.0-98.0) fL MCH (27.0-32.0) pg MCHC (31.0-37.0) g/dL RDW Std Deviation (28.0-62.0) fl RDW Coeff of Erlin (11.0-15.0) % Plt Count (150-400) K/uL MPV (7.40-12.00) fL Neut % (Auto) (48.0-80.0) % Lymph % (Auto) (16.0-40.0) % Morton % (Auto) (0.0-15.0) % Eos % (Auto) (0.0-7.0) % Baso % (Auto) (0.0-1.5) % Neut # (Auto) (1.4-5.7) K/uL Lymph # (Auto) (0.6-2.4) K/uL Morton # (Auto) (0.0-0.8) K/uL Eos # (Auto) (0.0-0.7) K/uL Baso # (Auto) (0.0-0.1) K/uL Nucleated RBC % /100WBC Nucleated RBCs # K/uL INR Sodium (136-145) mmol/L Potassium (3.5-5.1) mmol/L Chloride (98-107) mmol/L Carbon Dioxide (21.0-32.0) mmol/L BUN (7.0-18.0) mg/dL Creatinine (0.6-1.0) mg/dL Est Cr Clr Drug Dosing Estimated GFR (MDRD) ml/min Glucose (74-106) mg/dL POC Glucose (70-99) mg/dL Lactic Acid 4.2 H* (0.4-2.0) mmol/L Calcium (8.5-10.1) mg/dL Total Bilirubin (0.2-1.0) mg/dL AST (15-37) IU/L ALT (14-63) IU/L Alkaline Phosphatase (46-116) U/L Troponin I < 0.050 (0.000-0.056) ng/mL Total Protein (6.4-8.2) g/dL Albumin (3.4-5.0) g/dL Globulin (2.6-4.0) g/dL Albumin/Globulin Ratio (0.9-1.6) Lipase (73-393) U/L HCG, Qual NEGATIVE (NEG) Urine Color Urine Appearance Urine pH (5.0-8.0) Ur Specific [place] (1.001-1.035) Urine Protein (NEGATIVE) mg/dL Urine Glucose (UA) (NEGATIVE) mg/dL Urine Ketones (NEGATIVE) mg/dL Urine Occult Blood (NEGATIVE) Urine Nitrite (NEGATIVE) Urine Bilirubin (NEGATIVE) Urine Urobilinogen (<2.0) EU/dL Ur Leukocyte Esterase (NEGATIVE) SARS-CoV-2 RNA (ELIEZER) (NEGATIVE) 07/12/21 07/12/21 07/12/21 Range/Units 05:59 06:10 06:35 WBC (4.0-11.0) K/uL RBC (4.30-5.90) M/uL Hgb (12.0-16.0) g/dL Hct (36.0-46.0) % MCV (80.0-98.0) fL MCH (27.0-32.0) pg MCHC (31.0-37.0) g/dL RDW Std Deviation (28.0-62.0) fl RDW Coeff of Erlin (11.0-15.0) % Plt Count (150-400) K/uL MPV (7.40-12.00) fL Neut % (Auto) (48.0-80.0) % Lymph % (Auto) (16.0-40.0) % Morton % (Auto) (0.0-15.0) % Eos % (Auto) (0.0-7.0) % Baso % (Auto) (0.0-1.5) % Neut # (Auto) (1.4-5.7) K/uL Lymph # (Auto) (0.6-2.4) K/uL Morton # (Auto) (0.0-0.8) K/uL Eos # (Auto) (0.0-0.7) K/uL Baso # (Auto) (0.0-0.1) K/uL Nucleated RBC % /100WBC Nucleated RBCs # K/uL INR Sodium (136-145) mmol/L Potassium (3.5-5.1) mmol/L Chloride (98-107) mmol/L Carbon Dioxide (21.0-32.0) mmol/L BUN (7.0-18.0) mg/dL Creatinine (0.6-1.0) mg/dL Est Cr Clr Drug Dosing Estimated GFR (MDRD) ml/min Glucose (74-106) mg/dL POC Glucose 115 H (70-99) mg/dL Lactic Acid 4.2 H* (0.4-2.0) mmol/L Calcium (8.5-10.1) mg/dL Total Bilirubin (0.2-1.0) mg/dL AST (15-37) IU/L ALT (14-63) IU/L Alkaline Phosphatase (46-116) U/L Troponin I (0.000-0.056) ng/mL Total Protein (6.4-8.2) g/dL Albumin (3.4-5.0) g/dL Globulin (2.6-4.0) g/dL Albumin/Globulin Ratio (0.9-1.6) Lipase (73-393) U/L HCG, Qual (NEG) Urine Color YELLOW Urine Appearance CLEAR Urine pH 7.5 (5.0-8.0) Ur Specific [place] 1.015 (1.001-1.035) Urine Protein NEGATIVE (NEGATIVE) mg/dL Urine Glucose (UA) NEGATIVE (NEGATIVE) mg/dL Urine Ketones TRACE H (NEGATIVE) mg/dL Urine Occult Blood NEGATIVE (NEGATIVE) Urine Nitrite NEGATIVE (NEGATIVE) Urine Bilirubin NEGATIVE (NEGATIVE) Urine Urobilinogen 0.2 (<2.0) EU/dL Ur Leukocyte Esterase NEGATIVE (NEGATIVE) SARS-CoV-2 RNA (ELIEZER) (NEGATIVE) 07/12/21 07/12/21 Range/Units 06:55 08:01 WBC (4.0-11.0) K/uL RBC (4.30-5.90) M/uL Hgb (12.0-16.0) g/dL Hct (36.0-46.0) % MCV (80.0-98.0) fL MCH (27.0-32.0) pg MCHC (31.0-37.0) g/dL RDW Std Deviation (28.0-62.0) fl RDW Coeff of Erlin (11.0-15.0) % Plt Count (150-400) K/uL MPV (7.40-12.00) fL Neut % (Auto) (48.0-80.0) % Lymph % (Auto) (16.0-40.0) % Morton % (Auto) (0.0-15.0) % Eos % (Auto) (0.0-7.0) % Baso % (Auto) (0.0-1.5) % Neut # (Auto) (1.4-5.7) K/uL Lymph # (Auto) (0.6-2.4) K/uL Morton # (Auto) (0.0-0.8) K/uL Eos # (Auto) (0.0-0.7) K/uL Baso # (Auto) (0.0-0.1) K/uL Nucleated RBC % /100WBC Nucleated RBCs # K/uL INR Sodium (136-145) mmol/L Potassium (3.5-5.1) mmol/L Chloride (98-107) mmol/L Carbon Dioxide (21.0-32.0) mmol/L BUN (7.0-18.0) mg/dL Creatinine (0.6-1.0) mg/dL Est Cr Clr Drug Dosing Estimated GFR (MDRD) ml/min Glucose (74-106) mg/dL POC Glucose (70-99) mg/dL Lactic Acid 4.1 H* (0.4-2.0) mmol/L Calcium (8.5-10.1) mg/dL Total Bilirubin (0.2-1.0) mg/dL AST (15-37) IU/L ALT (14-63) IU/L Alkaline Phosphatase (46-116) U/L Troponin I (0.000-0.056) ng/mL Total Protein (6.4-8.2) g/dL Albumin (3.4-5.0) g/dL Globulin (2.6-4.0) g/dL Albumin/Globulin Ratio (0.9-1.6) Lipase (73-393) U/L HCG, Qual (NEG) Urine Color Urine Appearance Urine pH (5.0-8.0) Ur Specific [place] (1.001-1.035) Urine Protein (NEGATIVE) mg/dL Urine Glucose (UA) (NEGATIVE) mg/dL Urine Ketones (NEGATIVE) mg/dL Urine Occult Blood (NEGATIVE) Urine Nitrite (NEGATIVE) Urine Bilirubin (NEGATIVE) Urine Urobilinogen (<2.0) EU/dL Ur Leukocyte Esterase (NEGATIVE) SARS-CoV-2 RNA (ELIEZER) NEGATIVE (NEGATIVE) Result Diagrams: 07/13/21 03:05 07/13/21 03:05 Sepsis Event Note - Evaluation Sepsis Screening Result: No Definite Risk - Focused Exam Vital Signs: Vital Signs Temp Pulse Resp BP Pulse Ox 07/12/21 15:33 78 117/85 95 07/12/21 14:40 80 15 119/83 93 L 07/12/21 14:06 81 113/63 91 L 07/12/21 13:06 79 110/56 L 93 L 07/12/21 12:35 92 105/60 93 L 07/12/21 11:35 87 120/79 93 L 07/12/21 10:57 64 89/58 L 93 L 07/12/21 10:51 82 15 115/69 93 L 07/12/21 10:05 78 115/69 94 L 07/12/21 09:05 83 109/70 94 L 07/12/21 07:36 85 94/57 L 92 L 07/12/21 07:04 36.3 C 89 95/59 L 94 L 07/12/21 06:03 93 18 107/69 93 L 07/12/21 04:00 36.6 C 90 18 141/90 H 96 Problem List Initiated/Reviewed/Updated: Yes Orders Last 24hrs: Active Orders 24 hr Category Date Time Status Admission Status [Patient Status] [ADT] Stat ADT 07/12/21 14:26 Active Antiembolic Devices [RC] PER UNIT ROUTINE Care 07/12/21 15:46 Ordered Blood Glucose Check, Bedside [RC] ONETIME Care 07/12/21 03:45 Active Oxygen Therapy [RC] PRN Care 07/12/21 15:45 Ordered RT Aerosol Therapy [RC] ASDIRECTED Care 07/12/21 14:24 Active Up ad Monica [RC] ASDIRECTED Care 07/12/21 15:45 Ordered VTE/DVT Education [RC] PER UNIT ROUTINE Care 07/12/21 15:45 Ordered Vital Signs [RC] Q4H Care 07/12/21 15:45 Ordered Regular Diet [DIET] Diet 07/12/21 Breakfast Ordered CBC W/O DIFF,HEMOGRAM [HEME] AM Lab 07/13/21 05:11 Ordered COMPREHENSIVE METABOLIC PN,CMP [CHEM] AM Lab 07/13/21 05:11 Ordered CULTURE BLOOD [BC] Stat Lab 07/12/21 06:55 Received CULTURE BLOOD [BC] Stat Lab 07/12/21 07:00 Received LACTATE SEPSIS W/ REFLEX [CHEM] Routine Lab 07/12/21 15:28 Received MAGNESIUM [CHEM] AM Lab 07/13/21 05:11 Ordered PHOSPHORUS [CHEM] AM Lab 07/13/21 05:11 Ordered Azithromycin [Zithromax] Med 07/13/21 14:00 Ordered 500 mg IV Q24H Azithromycin [Zithromax] 500 mg Med 07/12/21 14:15 Active Sodium Chloride 0.9% [Normal Saline AdvBag] 250 ml IV DAILY HYDROmorphone [Dilaudid] Med 07/12/21 15:45 Ordered 0.5 mg IVPUSH Q3H PRN Heparin Sodium Med 07/12/21 15:45 Ordered 5,000 units SUBCUT Q8H Lactated Ringers @ 125 MLS/HR(1000ml) Med 07/12/21 15:45 Ordered Lactated Ringers [Ringers, Lactated] 1,000 ml IV ASDIRECTED Lactated Ringers [Ringers, Lactated] 1,000 ml Med 07/12/21 04:00 Active IV ASDIRECTED Lactated Ringers [Ringers, Lactated] 1,000 ml Med 07/12/21 04:30 Active IV ASDIRECTED Lactated Ringers [Ringers, Lactated] 1,000 ml Med 07/12/21 04:45 Active IV ASDIRECTED Lactated Ringers [Ringers, Lactated] 1,000 ml Med 07/12/21 06:45 Active IV ASDIRECTED Levothyroxine [Synthroid] Med 07/13/21 07:30 Ordered 100 mcg PO ACBREAKFAST Metoclopramide [Reglan] Med 07/12/21 15:43 Ordered 10 mg IVPUSH Q8H PRN Ondansetron [Zofran] Med 07/12/21 15:44 Ordered 4 mg IVPUSH Q6H PRN Pantoprazole [ProTONIX IV] 40 mg Med 07/13/21 05:00 Ordered Sodium Chloride 0.9% [Normal Saline] 10 ml IV Q24H Piperacillin/Tazobactam [Piperacil-Tazobact] 3.375 gm Med 07/12/21 16:00 Ordered Sodium Chloride 0.9% [Normal Saline AdvBag] 50 ml IV Q6H diphenhydrAMINE [Benadryl] Med 07/12/21 08:00 Active 25 mg IVPUSH BEDTIME PRN Blood Culture x2 Reflex Set [OM.PC] Stat Oth 07/12/21 06:43 Ordered Sequential Compression Device [OM.PC] Per Unit Routine Oth 07/12/21 15:45 Ordered Resuscitation Status Routine Resus Stat 07/12/21 15:45 Ordered Medication Orders Azithromycin (Azithromycin 500 Mg Vial) 500 mg IV Q24H [facility] Diphenhydramine HCl (Diphenhydramine 50 Mg/Ml Sdv) 25 mg IVPUSH BEDTIME PRN PRN Reason: Allergies Last Admin: 07/12/21 08:08 Dose: 25 mg Documented by: KOREYUALA Heparin Sodium (Porcine) (Heparin Sodium 5,000 Units/Ml Vial) 5,000 units SUBCUT Q8H [facility] Hydromorphone HCl (Hydromorphone 2 Mg/Ml Syringe) 0.5 mg IVPUSH Q3H PRN PRN Reason: Pain (severe 7-10) Lactated Ringer's (Ringers, Lactated) 1,000 mls @ 999 mls/hr IV ASDIRECTED [facility] Last Admin: 07/12/21 04:01 Dose: 999 mls/hr Documented by: LEWILAC Lactated Ringer's (Ringers, Lactated) 1,000 mls @ 999 mls/hr IV ASDIRECTED [facility] Last Admin: 07/12/21 05:00 Dose: 999 mls/hr Documented by: LEWILAC Lactated Ringer's (Ringers, Lactated) 1,000 mls @ 178 mls/hr IV ASDIRECTED [facility] Last Admin: 07/12/21 05:20 Dose: 178 mls/hr Documented by: LEWILAC Lactated Ringer's (Ringers, Lactated) 1,000 mls @ 125 mls/hr IV ASDIRECTED [facility] Last Admin: 07/12/21 06:55 Dose: 125 mls/hr Documented by: MAGGIE Azithromycin 500 mg/ Sodium (Chloride) 250 mls @ 250 mls/hr IV DAILY [facility] Last Admin: 07/12/21 14:34 Dose: 250 mls/hr Documented by: MARCOS Lactated Ringer's (Ringers, Lactated) 1,000 mls @ 125 mls/hr IV ASDIRECTED [facility] Piperacillin Sod/Tazobactam (Sod 3.375 gm/ Sodium Chloride) 50 mls @ 100 mls/hr IV Q6H [facility] Pantoprazole Sodium 40 mg/ (Sodium Chloride) 10 mls @ 300 mls/hr IV Q24H [facility] Levothyroxine Sodium (Levothyroxine 100 Mcg Tab) 100 mcg PO ACBREAKFAST [facility] Metoclopramide HCl (Metoclopramide 10 Mg/2 Ml Sdv) 10 mg IVPUSH Q8H PRN PRN Reason: Nausea Ondansetron HCl (Ondansetron 4 Mg/2 Ml Sdv) 4 mg IVPUSH Q6H PRN PRN Reason: Nausea/Vomiting Assessment/Plan Comment:: 51 yo female admitted for gastroparesis. We will treat with IV fluids, antiemetics and dilaudid as needed. Patient does have an elevated lactic acid and WBC but does not appear infected. We will keep on IV antibiotics until infection has been ruled out.
[2021-07-12] MEDS: HYDROmorphone 2 MG/ML Syringe IVPUSH PRN ×2 (15:55→21:37)
[2021-07-12] MEDS ORDERED: 50% Dextrose in Water 50 ML Syringe IVPUSH PRN (16:20)
[2021-07-12] MEDS ORDERED: Glucagon,Human Recombinant 1 MG Vial IM PRN (16:20)
[2021-07-12] MEDS: Insulin Aspart 100 Units/ML 3 ML Pen SUBCUT SCH (17:47)
[2021-07-12] MEDS: Heparin Sodium 5,000 Units/ML Vial SUBCUT SCH ×2 (18:14→23:07)
[2021-07-12] MEDS: Piperacillin/Tazobactam 3.375 GM in Sodium Chloride 0.9% 50 ML IV SCH ×2 (18:14→21:39)
[2021-07-12] MEDS: Metoclopramide 10 MG/2 ML SDV IVPUSH PRN (18:23)
[2021-07-12] MEDS: Ondansetron 4 MG/2 ML SDV IVPUSH PRN (21:38)
[2021-07-12] MEDS ORDERED: traZODone 50 MG Tab PO ONE (21:52)
[2021-07-12] MEDS ORDERED: Sodium Chloride 0.9% 500 ML IV SCH (22:00)
[2021-07-13 03:46] LABS: CARBON DIOXIDE,CO2 29.2 mmol/L (21.0-32.0)
[2021-07-13] MEDS: Piperacillin/Tazobactam 3.375 GM in Sodium Chloride 0.9% 50 ML IV SCH ×2 (04:14→10:58)
[2021-07-13] MEDS ORDERED: Pantoprazole 40 MG in Sodium Chloride 0.9% 10 ML IV SCH (05:00)
[2021-07-13] MEDS: HYDROmorphone 2 MG/ML Syringe IVPUSH PRN (05:43)
[2021-07-13] MEDS: Ondansetron 4 MG/2 ML SDV IVPUSH PRN (05:47)
[2021-07-13] MEDS ORDERED: HYDROmorphone 2 MG Tab PO PRN (06:27)
[2021-07-13] MEDS ORDERED: SUMAtriptan 50 MG Tab PO PRN (06:27)
[2021-07-13] MEDS ORDERED: Levothyroxine 100 MCG Tab PO SCH (07:30)
[2021-07-13] MEDS: Insulin Aspart 100 Units/ML 3 ML Pen SUBCUT SCH ×2 (07:49→11:10)
[2021-07-13] MEDS: Azithromycin 500 MG in Sodium Chloride 0.9% 250 ML IV SCH (08:09)
[2021-07-13] MEDS: Heparin Sodium 5,000 Units/ML Vial SUBCUT SCH (08:09)
[2021-07-13] MEDS: Metoclopramide 10 MG/2 ML SDV IVPUSH PRN (08:19)
[2021-07-13] MEDS ORDERED: Fluticasone/Salmeterol 250-50 MCG Inhalation Powder 14/Diskus INH SCH (10:00)
[2021-07-13 11:34] VITALS: BP 142/70; PULSE 84
--- NOTE | 2021-07-13 11:46 | PCM.DCSUM1 ---
Discharge Summary - Discharge Data Discharge Date: 07/13/21 Discharge Disposition: Home, Self-Care 01 Condition: Stable - Referral to Home Health Primary Care Physician: Rosana Alvarez NP - Patient Summary/Data Hospital Course: 1 yo female with pmh of gastroparesis who presents to the ER with complaints of severe nausea and vomiting for one day. In the ED she was noted to have a WBC of 17,000 and a lactic acid of 4.2. CT scan of head, chest, abdomen, and pelvis were relatively unrevealing. Patient was treated with Zosyn however I beleive patient's leukocytosis and elevated lactic were likely due to vomiting and dehydration and not infection. Today patient is feeling better and requesting discharge home. Her lactic acid and leukocytosis have resolved. Patient was discharged home to have follow up with her PCP. - Patient Instructions Diet: Regular Diet as Tolerated Activity: As Tolerated - Discharge Plan *PRESCRIPTION DRUG MONITORING PROGRAM REVIEWED*: No *COPY OF PRESCRIPTION DRUG MONITORING REPORT IN PATIENT EILEEN: No Home Medications: Home Meds Fluticasone/Salmeterol [Advair 250-50] 1 puff INH BID 12/09/14 [History] Omeprazole 1 tab PO DAILY 12/09/14 [History] Zolpidem [Ambien] 10 mg PO BEDTIME 12/09/14 [History] Cholecalciferol (Vitamin D3) [Vitamin D3] 5,000 unit PO DAILY 08/02/15 [History] Cyanocobalamin (Vitamin B-12) [Vitamin B-12] 1,000 mcg PO DAILY 08/02/15 [History] Levothyroxine [Synthroid] 125 mcg PO ACBREAKFAST 08/02/15 [History] SUMAtriptan 100 mg PO .EVERY 2 HOURS PRN MDD 200 MG 08/02/15 [History] Trimethobenzamide [Tigan] 300 mg PO TID PRN 08/02/15 [History] Vitamin A 8,000 unit PO DAILY 08/02/15 [History] Vitamin E 400 unit PO DAILY 08/02/15 [History] valACYclovir [Valtrex] 500 mg PO BID PRN MDD Herpes 08/02/15 [History] Albuterol [Ventolin HFA] 2 inh IH Q6H PRN 07/28/17 [History] Ondansetron [Zofran ODT] 8 mg SL Q8H PRN 07/28/17 [History] Polyethylene Glycol 3350 [MiraLAX] 17 gm PO DAILY PRN 07/28/17 [History] Prochlorperazine [Compro] 25 mg RC TID 07/28/17 [History] HYDROmorphone [Dilaudid] 2 mg PO Q6H PRN 07/12/21 [History] Metoclopramide HCl [Reglan] 20 mg PO TID 07/12/21 [History] atorvaSTATin [Lipitor] 20 mg PO QAM 07/12/21 [History] estradioL [Estradiol (Once Weekly)] 1 each TD WEEKLY 07/12/21 [History] Patient Handouts: Vomiting, Adult, Gastroparesis Referrals: Rosana Alvarez NP [Primary Care Provider] - - Discharge Summary/Plan Comment DC Time >30 min.: No Total # of Minutes for Discharge Time: 15 - Patient Data Vitals - Most Recent: Last Vital Signs Temp 35.8 C L 07/13/21 11:33 Pulse 84 07/13/21 11:33 Resp 22 H 07/13/21 11:33 BP 142/70 H 07/13/21 11:33 Pulse Ox 93 L 07/13/21 11:33 Weight - Most Recent: 74.389 kg I&O - Last 24 hours: Intake & Output 07/12/21 07/13/21 07/13/21 22:59 06:59 14:59 Intake Total 50 1903 Output Total 900 Balance 50 1003 Lab Results - Last 24 hrs: Laboratory Results - last 24 hr 07/12/21 07/12/21 07/12/21 Range/Units 15:28 17:11 21:01 WBC (4.0-11.0) K/uL RBC (4.30-5.90) M/uL Hgb (12.0-16.0) g/dL Hct (36.0-46.0) % MCV (80.0-98.0) fL MCH (27.0-32.0) pg MCHC (31.0-37.0) g/dL RDW Std Deviation (28.0-62.0) fl RDW Coeff of Erlin (11.0-15.0) % Plt Count (150-400) K/uL MPV (7.40-12.00) fL Nucleated RBC % /100WBC Nucleated RBCs # K/uL Sodium (136-145) mmol/L Potassium (3.5-5.1) mmol/L Chloride (98-107) mmol/L Carbon Dioxide (21.0-32.0) mmol/L BUN (7.0-18.0) mg/dL Creatinine (0.6-1.0) mg/dL Est Cr Clr Drug Dosing mL/min Estimated GFR (MDRD) ml/min Glucose (74-106) mg/dL POC Glucose 116 H (70-99) mg/dL Lactic Acid 3.1 H* 3.1 H* (0.4-2.0) mmol/L Calcium (8.5-10.1) mg/dL Phosphorus (2.6-4.7) mg/dL Magnesium (1.8-2.4) mg/dL Total Bilirubin (0.2-1.0) mg/dL AST (15-37) IU/L ALT (14-63) IU/L Alkaline Phosphatase (46-116) U/L Total Protein (6.4-8.2) g/dL Albumin (3.4-5.0) g/dL Globulin (2.6-4.0) g/dL Albumin/Globulin Ratio (0.9-1.6) 07/13/21 07/13/21 07/13/21 Range/Units 03:05 03:05 03:05 WBC 9.97 (4.0-11.0) K/uL RBC 3.77 L (4.30-5.90) M/uL Hgb 11.7 L (12.0-16.0) g/dL Hct 35.2 L (36.0-46.0) % MCV 93.4 (80.0-98.0) fL MCH 31.0 (27.0-32.0) pg MCHC 33.2 (31.0-37.0) g/dL RDW Std Deviation 46.8 (28.0-62.0) fl RDW Coeff of Erlin 14 (11.0-15.0) % Plt Count 296 (150-400) K/uL MPV 8.40 (7.40-12.00) fL Nucleated RBC % 0.0 /100WBC Nucleated RBCs # 0 K/uL Sodium 141 (136-145) mmol/L Potassium 4.0 (3.5-5.1) mmol/L Chloride 106 (98-107) mmol/L Carbon Dioxide 29.2 (21.0-32.0) mmol/L BUN 11 (7.0-18.0) mg/dL Creatinine 1.0 (0.6-1.0) mg/dL Est Cr Clr Drug Dosing 69.56 mL/min Estimated GFR (MDRD) 58.5 ml/min Glucose 116 H (74-106) mg/dL POC Glucose (70-99) mg/dL Lactic Acid 2.0 (0.4-2.0) mmol/L Calcium 7.5 L (8.5-10.1) mg/dL Phosphorus 2.5 L (2.6-4.7) mg/dL Magnesium 2.0 (1.8-2.4) mg/dL Total Bilirubin 0.3 (0.2-1.0) mg/dL AST 13 L (15-37) IU/L ALT 18 (14-63) IU/L Alkaline Phosphatase 89 (46-116) U/L Total Protein 6.3 L (6.4-8.2) g/dL Albumin 3.0 L (3.4-5.0) g/dL Globulin 3.3 (2.6-4.0) g/dL Albumin/Globulin Ratio 0.9 (0.9-1.6) 07/13/21 Range/Units 06:41 WBC (4.0-11.0) K/uL RBC (4.30-5.90) M/uL Hgb (12.0-16.0) g/dL Hct (36.0-46.0) % MCV (80.0-98.0) fL MCH (27.0-32.0) pg MCHC (31.0-37.0) g/dL RDW Std Deviation (28.0-62.0) fl RDW Coeff of Erlin (11.0-15.0) % Plt Count (150-400) K/uL MPV (7.40-12.00) fL Nucleated RBC % /100WBC Nucleated RBCs # K/uL Sodium (136-145) mmol/L Potassium (3.5-5.1) mmol/L Chloride (98-107) mmol/L Carbon Dioxide (21.0-32.0) mmol/L BUN (7.0-18.0) mg/dL Creatinine (0.6-1.0) mg/dL Est Cr Clr Drug Dosing mL/min Estimated GFR (MDRD) ml/min Glucose (74-106) mg/dL POC Glucose 95 (70-99) mg/dL Lactic Acid (0.4-2.0) mmol/L Calcium (8.5-10.1) mg/dL Phosphorus (2.6-4.7) mg/dL Magnesium (1.8-2.4) mg/dL Total Bilirubin (0.2-1.0) mg/dL AST (15-37) IU/L ALT (14-63) IU/L Alkaline Phosphatase (46-116) U/L Total Protein (6.4-8.2) g/dL Albumin (3.4-5.0) g/dL Globulin (2.6-4.0) g/dL Albumin/Globulin Ratio (0.9-1.6) [facility]ELYN Results - Last 24 hrs: Microbiology 07/12/21 07:00 Aerobic Blood Culture - Preliminary Blood - Venous - Lab Draw NO GROWTH AFTER 1 DAY Anaerobic Blood Culture - Preliminary NO GROWTH AFTER 1 DAY 07/12/21 06:55 Aerobic Blood Culture - Preliminary Blood - Venous NO GROWTH AFTER 1 DAY Anaerobic Blood Culture - Preliminary NO GROWTH AFTER 1 DAY Med Orders - Current: Current Medications Azithromycin (Azithromycin 500 Mg Vial) 500 mg IV Q24H [facility] Dextrose/Water (50% Dextrose In Water 50 Ml Syringe) 50 ml IVPUSH ASDIRECTED PRN PRN Reason: Hypoglycemia Diphenhydramine HCl (Diphenhydramine 50 Mg/Ml Sdv) 25 mg IVPUSH BEDTIME PRN PRN Reason: Allergies Last Admin: 07/12/21 08:08 Dose: 25 mg Documented by: Glucagon (Glucagon,Human Recombinant 1 Mg Vial) 1 mg IM ASDIRECTED PRN PRN Reason: Hypoglycemia Heparin Sodium (Porcine) (Heparin Sodium 5,000 Units/Ml Vial) 5,000 units SUBCUT Q8H [facility] Last Admin: 07/13/21 08:09 Dose: 5,000 units Documented by: Hydromorphone HCl (Hydromorphone 2 Mg/Ml Syringe) 0.5 mg IVPUSH Q3H PRN PRN Reason: Pain (severe 7-10) Last Admin: 07/13/21 05:43 Dose: 0.5 mg Documented by: Hydromorphone HCl (Hydromorphone 2 Mg Tab) 2 mg PO Q6H PRN PRN Reason: Pain Last Admin: 07/13/21 08:06 Dose: 2 mg Documented by: Lactated Ringer's (Ringers, Lactated) 1,000 mls @ 999 mls/hr IV ASDIRECTED [facility] Last Admin: 07/12/21 04:01 Dose: 999 mls/hr Documented by: Lactated Ringer's (Ringers, Lactated) 1,000 mls @ 999 mls/hr IV ASDIRECTED [facility] Last Admin: 07/12/21 05:00 Dose: 999 mls/hr Documented by: Lactated Ringer's (Ringers, Lactated) 1,000 mls @ 178 mls/hr IV ASDIRECTED [facility] Last Admin: 07/12/21 05:20 Dose: 178 mls/hr Documented by: Lactated Ringer's (Ringers, Lactated) 1,000 mls @ 125 mls/hr IV ASDIRECTED [facility] Last Admin: 07/12/21 18:58 Dose: 125 mls/hr Documented by: Azithromycin 500 mg/ Sodium (Chloride) 250 mls @ 250 mls/hr IV DAILY [facility] Last Admin: 07/13/21 08:09 Dose: 250 mls/hr Documented by: Lactated Ringer's (Ringers, Lactated) 1,000 mls @ 125 mls/hr IV ASDIRECTED [facility] Last Admin: 07/13/21 05:03 Dose: 125 mls/hr Documented by: Piperacillin Sod/Tazobactam (Sod 3.375 gm/ Sodium Chloride) 50 mls @ 100 mls/hr IV Q6H [facility] Last Admin: 07/13/21 10:58 Dose: 100 mls/hr Documented by: Pantoprazole Sodium 40 mg/ (Sodium Chloride) 10 mls @ 300 mls/hr IV Q24H [facility] Last Admin: 07/13/21 05:04 Dose: 300 mls/hr Documented by: Sodium Chloride (Normal Saline) 500 mls @ 500 mls/hr IV .BOLUS [facility] Last Admin: 07/12/21 22:42 Dose: 500 mls/hr Documented by: Insulin Aspart (Insulin Aspart 100 Units/Ml 3 Ml Pen) 0 unit SUBCUT TIDAC [facility]; Protocol Last Admin: 07/13/21 11:10 Dose: Not Given Documented by: Levothyroxine Sodium (Levothyroxine 100 Mcg Tab) 100 mcg PO ACBREAKFAST [facility] Last Admin: 07/13/21 06:42 Dose: 100 mcg Documented by: Metoclopramide HCl (Metoclopramide 10 Mg/2 Ml Sdv) 10 mg IVPUSH Q8H PRN PRN Reason: Nausea Last Admin: 07/13/21 08:19 Dose: 10 mg Documented by: Ondansetron HCl (Ondansetron 4 Mg/2 Ml Sdv) 4 mg IVPUSH Q6H PRN PRN Reason: Nausea/Vomiting Last Admin: 07/13/21 05:47 Dose: 4 mg Documented by: Fluticasone/Salmeterol (Fluticasone/Salmeterol 250-50 Mcg Inhalation Powder 14/Diskus) 1 puff INH BID [facility] Last Admin: 07/13/21 11:00 Dose: Not Given Documented by: Sumatriptan Succinate (Sumatriptan 50 Mg Tab) 100 mg PO Q2HR PRN PRN Reason: migraine Last Admin: 07/13/21 08:07 Dose: 100 mg Documented by: Discontinued Medications Albuterol/Ipratropium (Albuterol/Ipratropium 3.0-0.5 Mg/3 Ml Neb Soln) 3 ml NEB ONETIME ONE Stop: 07/12/21 14:25 Last Admin: 07/12/21 15:38 Dose: 3 ml Documented by: Alum Helena/Mag Helena/Simeth XS (15 ml/ Lidocaine HCl 5 ml) 0 ml PO ONETIME ONE Stop: 07/12/21 05:17 Last Admin: 07/12/21 05:34 Dose: 45 each Documented by: Diphenhydramine HCl (Diphenhydramine 50 Mg/Ml Sdv) 25 mg IVPUSH ONETIME ONE Stop: 07/12/21 03:45 Last Admin: 07/13/21 02:35 Dose: Not Given Documented by: Diphenhydramine HCl (Diphenhydramine 50 Mg/Ml Sdv) 25 mg IVPUSH ONETIME ONE Stop: 07/12/21 04:23 Last Admin: 07/12/21 04:35 Dose: 25 mg Documented by: Diphenhydramine HCl (Diphenhydramine 50 Mg/Ml Sdv) 25 mg IVPUSH BEDTIME ONE Stop: 07/12/21 11:19 Last Admin: 07/12/21 11:23 Dose: 25 mg Documented by: Haloperidol Lactate (Haloperidol Lactate 5 Mg/Ml Sdv) 5 mg IM ONETIME ONE Stop: 07/12/21 03:45 Last Admin: 07/13/21 02:35 Dose: Not Given Documented by: Haloperidol Lactate (Haloperidol Lactate 5 Mg/Ml Sdv) 2.5 mg IM ONETIME ONE Stop: 07/12/21 04:23 Last Admin: 07/12/21 04:37 Dose: 2.5 mg Documented by: Hydromorphone HCl (Hydromorphone 1 Mg/Ml Syringe) 1 mg IVPUSH ONETIME ONE Stop: 07/12/21 03:50 Last Admin: 07/12/21 04:03 Dose: 1 mg Documented by: Hydromorphone HCl (Hydromorphone 1 Mg/Ml Syringe) 1 mg IVPUSH ONETIME ONE Stop: 07/12/21 04:23 Last Admin: 07/12/21 04:32 Dose: 1 mg Documented by: Pantoprazole Sodium 80 mg/ (Sodium Chloride) 20 mls @ 420 mls/hr IVPUSH ONETIME ONE Stop: 07/12/21 05:19 Last Admin: 07/12/21 05:35 Dose: 420 mls/hr Documented by: Piperacillin Sod/Tazobactam (Sod 4.5 gm/ Sodium Chloride) 100 mls @ 100 mls/hr IV ONETIME ONE Stop: 07/12/21 08:38 Last Admin: 07/12/21 08:46 Dose: 100 mls/hr Documented by: Iopamidol (Iopamidol 755 Mg/Ml 500 Ml Multipack Bottle) 100 ml IVPUSH ONETIME STA Stop: 07/12/21 13:23 Last Admin: 07/12/21 13:23 Dose: 100 ml Documented by: Methylprednisolone Sodium Succinate (Methylprednisolone Sodium Succinate 40 Mg/1 Ml Sdv) 40 mg IVPUSH ONETIME ONE Stop: 07/12/21 08:17 Last Admin: 07/12/21 08:41 Dose: 40 mg Documented by: Methylprednisolone Sodium Succinate (Methylprednisolone Sodium Succinate 2 Gm Vial) 60 gm IV ONETIME ONE Stop: 07/12/21 14:24 Metoclopramide HCl (Metoclopramide 10 Mg/2 Ml Sdv) 10 mg IVPUSH ONETIME ONE Stop: 07/12/21 03:46 Last Admin: 07/12/21 04:04 Dose: 10 mg Documented by: Morphine Sulfate (Morphine 4 Mg/Ml Vial) 4 mg IVPUSH ONETIME ONE Stop: 07/12/21 11:21 Last Admin: 07/12/21 11:31 Dose: 4 mg Documented by: Morphine Sulfate (Morphine 2 Mg/Ml Syringe) 2 mg IVPUSH ONETIME ONE Stop: 07/12/21 15:39 Last Admin: 07/13/21 02:35 Dose: Not Given Documented by: Ondansetron HCl (Ondansetron 4 Mg/2 Ml Sdv) 4 mg IVPUSH ONETIME ONE Stop: 07/12/21 03:51 Last Admin: 07/12/21 04:01 Dose: 4 mg Documented by: Ondansetron HCl (Ondansetron 4 Mg/2 Ml Sdv) 4 mg IVPUSH ONETIME ONE Stop: 07/12/21 11:21 Last Admin: 07/12/21 11:31 Dose: 4 mg Documented by: Ondansetron HCl (Ondansetron 4 Mg/2 Ml Sdv) 4 mg IVPUSH ONETIME ONE Stop: 07/12/21 15:46 Last Admin: 07/12/21 15:55 Dose: 4 mg Documented by: Sumatriptan Succinate (Sumatriptan 6 Mg/0.5 Ml Sdv) 6 mg SUBCUT ONETIME ONE Stop: 07/12/21 09:15 Last Admin: 07/13/21 02:35 Dose: Not Given Documented by: Sumatriptan Succinate (Sumatriptan 50 Mg Tab) 100 mg PO ONETIME ONE Stop: 07/12/21 09:17 Last Admin: 07/12/21 09:34 Dose: 100 mg Documented by: Trazodone HCl (Trazodone 50 Mg Tab) 50 mg PO ONETIME ONE Stop: 07/12/21 21:53 Last Admin: 07/12/21 23:07 Dose: 50 mg Documented by:
[2021-07-13] MEDS ORDERED: Azithromycin 500 MG Vial IV SCH (14:00)
== END 2021-07-13 13:40 | disposition home or self-care (01) | DRG 254 ==
LOC: MW.ED 03:32 → MW.MS 14:26
PROVIDERS: ADMIT Internal Medicine; ATTEND Internal Medicine
DX: K31.84 Gastroparesis (principal); Z90.49 Acquired absence of other specified parts of digestive tract; Z98.51 Tubal ligation status; Z86.19 Personal history of other infectious and parasitic diseases; H54.7 Unspecified visual loss; J44.9 Chronic obstructive pulmonary disease, unspecified; Z79.899 Other long term (current) drug therapy; Z79.890 Hormone replacement therapy; Z88.8 Allergy status to other drugs, medicaments and biological substances; Z20.822 Contact with and (suspected) exposure to COVID-19
CPT/HCPCS: 36415; 70450; 70450-26; 71045; 71045-26; 71275; 71275-26; 74177; 74177-26; 80053; 81003; 82947; 83605; 83690; 83735; 84100; 84484; 84703; 85025; 85027; 85610; 87040; 93005; 96361; 96365; 96375; 96376; 99285-25; A9270-GY; C9113; J0456; J1170; J1200; J1630; J1644; J2270; J2405; J2543; J2765; J2920; J7040; J7050; J7120; J7620-GY; Q9967; U0002

== ENCOUNTER 2021-12-19 17:18 | Emergency (ER) | payer BC ==
[2021-12-19] MEDS ORDERED: Sodium Chloride 0.9% 2.5 ML Syringe FLUSH PRN (18:02)
[2021-12-19] MEDS ORDERED: Ondansetron 4 MG/2 ML SDV IVPUSH ONE ×2 (18:02→19:19)
[2021-12-19] MEDS ORDERED: Sodium Chloride 0.9% 10 ML Syringe FLUSH PRN (18:02)
[2021-12-19] MEDS ORDERED: Sodium Chloride 0.9% 1,000 ML IV ONE ×2 (18:02→19:19)
[2021-12-19] MEDS ORDERED: HYDROmorphone 2 MG/ML Syringe IVPUSH ONE (18:23)
[2021-12-19 18:53] LABS: CARBON DIOXIDE,CO2 23.3 mmol/L (21.0-32.0); POTASSIUM,K 4.5 mmol/L (3.5-5.1)
[2021-12-19] MEDS ORDERED: HYDROmorphone 1 MG/ML Syringe IVPUSH ONE (19:19)
[2021-12-19 20:31] VITALS: BP 120/70; PULSE 90
== END 2021-12-19 20:30 | disposition home or self-care (01) ==
LOC: MW.ED 17:18
DX: R55 Syncope and collapse (principal); K31.84 Gastroparesis; E78.00 Pure hypercholesterolemia, unspecified; J44.9 Chronic obstructive pulmonary disease, unspecified; E03.9 Hypothyroidism, unspecified; Z88.1 Allergy status to other antibiotic agents; Z91.041 Radiographic dye allergy status; Z88.8 Allergy status to other drugs, medicaments and biological substances; Z79.899 Other long term (current) drug therapy
CPT/HCPCS: 80053; 83690; 85025; 96374; 96375; 96376; 99284; J1170; J2405; J3490; J7030

== ENCOUNTER 2022-12-18 01:24 | Emergency (ER) | payer BC ==
[2022-12-18] MEDS ORDERED: Sodium Chloride 0.9% 1,000 ML IV ONE (02:00)
[2022-12-18] MEDS ORDERED: Sodium Chloride 0.9% 2.5 ML Syringe FLUSH PRN (02:00)
[2022-12-18] MEDS ORDERED: Sodium Chloride 0.9% 10 ML Syringe FLUSH PRN (02:00)
[2022-12-18] MEDS ORDERED: Ondansetron 4 MG/2 ML SDV IVPUSH ONE (02:18)
[2022-12-18] MEDS ORDERED: Haloperidol Lactate 5 MG/ML SDV IM ONE (02:28)
[2022-12-18 02:39] LABS: CARBON DIOXIDE,CO2 25.9 mmol/L (21.0-32.0); POTASSIUM,K 3.6 mmol/L (3.5-5.1)
[2022-12-18] MEDS ORDERED: Lactated Ringers 1,000 ML IV SCH (03:00)
[2022-12-18] MEDS ORDERED: HYDROmorphone 1 MG/ML Syringe IVPUSH ONE (03:35)
[2022-12-18 03:47] VITALS: BP 110/69; PULSE 106
== END 2022-12-18 03:50 | disposition home or self-care (01) ==
LOC: MW.ED 01:24
DX: K31.84 Gastroparesis (principal); Z88.1 Allergy status to other antibiotic agents; Z91.041 Radiographic dye allergy status; Z88.8 Allergy status to other drugs, medicaments and biological substances; Z79.899 Other long term (current) drug therapy
CPT/HCPCS: 36415; 80053; 85025; 93005; 96361; 96372; 96374; 96375; 99284; J1170; J1630; J2405; J7030; J7120; 93010